=== PATIENT | female | born 1995 | race Caucasian/White ===

== ENCOUNTER 2023-03-20 11:34 | Outpatient (RCR) | payer OTHER, SELFPAY ==
[2023-03-20 12:52] LABS: Hematocrit 34.2 % (37.0-47.0); Hemoglobin 11.2 g/dL (12.0-15.0)
[2023-03-20 13:06] LABS: Glucose 1 Hour PP 50gm Dose 163 mg/dL
[2023-03-20 13:47] LABS: HIV 1/2 Ab P24 Ag Result Negative (Negative)
[2023-03-20] MEDS: RHO(D) IMMUNE GLOBULIN 300 MCG/2 ML SYRINGE IM (17:55)
== END 2023-06-18 23:59 | disposition home or self-care (01) ==
LOC: ANHLAB 11:34
PROVIDERS: Visit Provider Advanced Practice Midwife
DX: Z11.4 Encounter for screening for human immunodeficiency virus [HIV] (principal); Z29.13 Encounter for prophylactic Rho(D) immune globulin; O36.0130 Maternal care for anti-D [Rh] antibodies, third trimester, not applicable or unspecified; Z3A.00 Weeks of gestation of pregnancy not specified
CPT/HCPCS: 36415; 82947; 85014; 85018; 85461; 86703; 86850; 86900; 86901; 90384; 96372; G0432; J2790

== ENCOUNTER 2023-05-29 21:15 | Inpatient (IN) | payer OTHER, SELFPAY ==
[2023-05-29] VITALS (24 sets, daily range): BP systolic 104–138; BP diastolic 59–94; PULSE 69–100; O2SAT 97–100; BMI 38.6
[2023-05-29] MEDS: LACTATED RINGERS 1,000 ML 125 ML IV CONT ×2 (22:47→23:57)
[2023-05-29 22:57] LABS: Basophils Percent Auto 0.3 % (0.2-1.2); Eosinophils Percent Auto 0.1 % (0-4.4); Hematocrit 31.6 % (37.0-47.0); Hemoglobin 10.4 g/dL (12.0-15.0); Immature Granulocyte Absolute 0.07 K/mm3 (0.00-0.031); Immature Granulocyte Percent A 0.7 % (0-0.5); Lymphocytes Absolute Auto 2.24 K/mm3 (0.9-3.2); Lymphocytes Percent Auto 20.9 % (18.3-44.2); Mean Corpuscular HGB Conc 32.9 g/dl (32-36); Mean Corpuscular Hemoglobin 31.7 pg (26-34); Mean Corpuscular Volume 96.3 fl (80-100); Mean Platelet Volume 10.5 fl (7.4-10.4); Monocytes Absolute Auto 0.7 K/mm3 (0.1-0.6); Monocytes Percent Auto 6.2 % (2.6-8.5); Neutrophils Absolute Auto 7.7 K/mm3 (1.3-6.7); Neutrophils Percent Auto 71.8 % (45.5-73.1); Platelet Count Result 185 k/mm3 (150-375); Red Blood Count 3.28 M/mm3 (4.2-5.4); Red Cell Distribution Width 14.5 % (11.5-14.5); White Blood Count 10.7 K/mm3 (4.5-10.0)
--- NOTE | 2023-05-29 23:22 | ADMGEN ---
This patient, Maura Dillard, was admitted to Labor/Delivery/Recovery 106-00. Patient/family oriented to hospital policies and general routines including ID bracelet, bed and alarms, visiting hours, pain management, procedures, bathroom and other care routines, personal items, smoking policy, room service/diet, and visiting hours. Information on how to activate the Rapid Response Team has been discussed. Patient/Family are encouraged to report perceived risks to care and to ask questions if they do not understand what they are told or what they should do.
--- NOTE | 2023-05-29 23:37 | WPDANESEPP ---
Anes - Eval Pre Procedure Procedure: labor epidural Date/Time: 05/29/23 23:37 Pre Op Diagnosis: Contractions Patient Data Age: 27 Gender: F Height: 1.6 m Weight: 99 kg Last Vital Signs Pulse 76 05/29/23 23:31 BP 119/71 05/29/23 23:31 Pulse Ox 100 05/29/23 23:35 O2 Del Method Room Air 05/29/23 23:20 Allergies Allergy/AdvReac Type Severity Reaction Status Date / Time benzocaine Allergy Itching Verified 05/29/23 23:18 latex Allergy Itching Verified 05/29/23 23:18 Home Medications Medication Instructions Recorded Confirmed Type prenat.vits,nafisa,zxs-yysp-mgeei 1 tablet PO DAILY 05/16/23 05/29/23 History sertraline 50 mg tablet 50 mg PO DAILY 05/16/23 05/29/23 History pqmdfedtat-rhngsshzzklrl-qyqxinty 1 tablet PO PRN PRN Headache 05/29/23 05/29/23 History 50 mg-325 mg-40 mg tablet Laboratory Tests 05/29/23 22:52 WBC 10.7 H K/mm3 (4.5-10.0) RBC 3.28 L M/mm3 (4.2-5.4) Hgb 10.4 L g/dL (12.0-15.0) Hct 31.6 L % (37.0-47.0) MCV 96.3 fl (80-100) MCH 31.7 pg (26-34) MCHC 32.9 g/dl (32-36) RDW 14.5 % (11.5-14.5) Plt Count 185 k/mm3 (150-375) MPV 10.5 H fl (7.4-10.4) Immature Gran % (Auto) 0.7 H % (0-0.5) Neut % (Auto) 71.8 % (45.5-73.1) Lymph % (Auto) 20.9 % (18.3-44.2) [place] % (Auto) 6.2 % (2.6-8.5) Eos % (Auto) 0.1 % (0-4.4) Baso % (Auto) 0.3 % (0.2-1.2) Lymph # (Auto) 2.24 K/mm3 (0.9-3.2) [place] # (Auto) 0.7 H K/mm3 (0.1-0.6) Eos # (Auto) 0.0 K/mm3 (0-0.3) Baso # (Auto) 0.0 K/mm3 (0.0-0.1) Abs Immat Gran (auto) 0.07 H K/mm3 (0.00-0.031) Absolute Neuts (auto) 7.7 H K/mm3 (1.3-6.7) Absolute Nucleated RBC 0.000 K/mm3 (0.0-0.012) Nucleated RBC % 0.0 % (0.0-0.2) RPR Pending Patient hx anesthesia problems: none Family hx anesthesia problems: none Results Review: All pre-operative results and documents have been reviewed as part of the pre-operative evaluation. [facility] Past Medical History Medical History (Updated 05/29/23 @ 23:38 by Leslie Bennett CRNA) Anxiety and depression Asthma Migraine Scoliosis Family History Family History Sibling Autism Epilepsy Mother Epilepsy Sibling Epilepsy Social History Social History Substance use: never Do You Feel Safe in your Home?: Yes Lack of Transportation: No Lack of Food: Never True Current Housing: I Have Housing Concerned About Future Housing: No Difficulty Paying Gas/Electric Bills: No Difficulty Paying for Meds: No Currently Unemployed: No Education: High School Diploma/GED Difficulty w/ Childcare or Family Care: No Spiritual care concerns: No Exam Day of Procedure 05/29/23 23:37 Patient weight: obese Heart: regular rate and rhythm Lungs: normal air movement Airway: Mallampati scale Neurological: alert and oriented
[2023-05-30] VITALS (105 sets, daily range): BP systolic 78–131; BP diastolic 44–84; PULSE 39–123; RESP 16–18; TEMP 36.2–36.7; O2SAT 97–100
--- NOTE | 2023-05-30 00:13 | WPDOBADMIT ---
Obstetrics - Admit Note Admission Note: record reviewed. No pertinent additions to the history and/or any subsequent changes in the physical findings that are not consistent with the expected course of the were found. Additions to the history and/or subsequent changes in the physical findings follow. pt admitted in labor, SVE /-2 AROM moderate amount of clear, odorless fluid, anticipate vaginal delivery
[2023-05-30] MEDS: OXYTOCIN 30 UNITS/NS 500 ML 30 UNITS/500 ML BAG IV CONT (00:15)
--- NOTE | 2023-05-30 03:19 | P.PCNOB_ITS ---
OB - Vaginal Delivery Note Procedure Delivery date: 05/30/23 Intrapartal Events: Decelerations Delivery augmentation: Rupture of Membranes and Pitocin Delivery monitor: External FHT and External Uterine Route of delivery: Episiotomy description: None Laceration Description: None Specimen: No Quantitative Blood Loss (ml): 50 Anesthesia type: Epidural Disposition: Floor Complications: No immediate complications [place] Baby Date of : 05/30/23 Time of : 03:10 Weeks of gestation at delivery: 38 Infant gender: Male presentation: vertex position: Left Occiput Anterior Placenta delivery description: Spontaneous Cord Vessel Description: 3 Vessels, Nuchal Cord (x1) and Clamped/Cut Narrative: baby to warmer, mother and baby in stable condition
[2023-05-30] MEDS: OXYTOCIN 30 UNITS/NS 500 ML 30 UNITS/500 ML BAG 125 UNITS IV CONT (03:44)
[2023-05-30] MEDS: BENZOCAINE 20% AER SPR (*SP) 56 GM CAN 1 SPRAY TOPICAL (05:42)
--- NOTE | 2023-05-30 06:40 | OBPPTRN ---
Patient transferred to post room # 284 via wheelchair. Support person present. Oriented to unit, room, information board, rooming in, admission packet and security measures. Patient verbalizes understanding.
--- NOTE | 2023-05-30 09:34 | PC.NURSE ---
[id number] Introductions were made, then consulted with patient to assess needs related to . Discussed with mother her?plans to feed?her infant, the?experience so far, and mother shared how the last was fed a bottle and mother was unhappy about that. Mother was given a nipple shield prior to meeting RN FERNIE. Reviewed good handwashing, cleaning the nipple shield and the appropriate way to apply and use as a tool. Discussed with mom the nipple shield precautions, possible complications associated with the risks and benefits. Reviewed practicing with a nipple shield, then without and how to protect the milk supply and production. Mom and baby guide referred to as a resource for outpatient services. Offered to initiate a pumping schedule to protect the milk supply with pumping at minimum of 8 times in a 24 hour period 1-2 times at night. Patient is going to think about it and declines initiating pumping at this time. Resources provided for inpatient and outpatient services with the feeding sheet, mom/baby guide and name written on the communication board. Mother voiced understanding of information and will call if there is a request for assistance. Primary RN brought infant back to mother during discussion.
[2023-05-30] MEDS: MULTIVIT/MIN/PREN/FOL AC/IRON TABLET 1 TAB PO (09:45)
[2023-05-30 12:00] LABS: Rapid Plasma Reagin Non-Reactive (NonReactive)
[2023-05-30] MEDS: ACETAMINOPHEN 325 MG TABLET 650 MG PO (12:47)
[2023-05-30] MEDS: IBUPROFEN 600 MG TABLET PO (19:07)
[2023-05-30] MEDS: HYDROcodone/acetaminophen (*CRX) 5-325 MG TABLET 1 TAB PO (19:07)
[2023-05-31] MEDS: HYDROcodone/acetaminophen (*CRX) 5-325 MG TABLET 1 TAB PO (04:24)
[2023-05-31] MEDS: IBUPROFEN 600 MG TABLET PO ×2 (04:24→10:12)
[2023-05-31 04:44] LABS: Hematocrit 32.7 % (37.0-47.0); Hemoglobin 10.1 g/dL (12.0-15.0)
--- NOTE | 2023-05-31 04:45 | PC.NURSE ---
CBC drawn and sent to lab.
--- NOTE | 2023-05-31 07:30 | PC.NURSE ---
Pt introductions made and plan of care discussed per post , pain management, breast feeding, daily care activities and pending discharge to home. PT and spouse both recipients of such instructions and no barriers to learning identified at this time. PT received such instructions per one to one discussion, mom baby care guide and demonstrations this shift. PT verbalized understanding of such care.
--- NOTE | 2023-05-31 07:38 | WPDANLDPN2 ---
Anes-Prog Note L&D Date/Time: 05/31/23 07:38 Comfortable throughout: labor and delivery Neuraxial method: epidural Epidural/Spinal procedure site: tender Neuro status: Neuro function grossly intact. Cardiovascular status: normal Respiratory status: normal Airway patency: baseline Mental status: baseline Post-Op hydration status: normal Vital Signs: Last Vital Signs Temp 36.6 C 05/30/23 21:00 Pulse 99 05/30/23 21:00 Resp 16 05/30/23 21:00 BP 112/77 05/30/23 21:00 Pulse Ox 99 05/30/23 21:00 O2 Del Method Room Air 05/29/23 23:20 Pain score (VAS): 2/10 I/O: Intake & Output 05/30/23 05/30/23 05/31/23 15:59 23:59 07:59 Intake Total 250 Balance 250 Post-procedural complaints: none Patient feedback: Patient satisfied with anesthetic care.
--- NOTE | 2023-05-31 07:41 | PM.OBPNVD ---
OB - PN: Subj Subjective Date/time seen: 05/31/23 07:41 Interval history: pp day 1 doing well plan d/c home OB - PN: Obj Data Labs 05/31/23 04:38 Labs: Laboratory Results - last 24 hr 05/29/23 05/31/23 22:52 04:38 Hgb 10.1 L Hct 32.7 L RPR Non-reactive OB - PN A/P Assessment and Plan (1) Vaginal delivery: Code(s): O80 - Encounter for full-term uncomplicated delivery Status: Acute Plan day: 1 Plan: routine care and discharge home Time Spent With Patient Time: Total time spent is greater than 50% in coordination of care (as documented) at patient's floor/unit and/or counseling patient: Review of Systems Review of Systems: All systems reviewed & are unremarkable except as noted in HPI and below Exam Const: General: cooperative Chest: Chest palpation & inspection: normal inspection of the chest Resp: Effort & Inspection: normal respiratory effort Cardio: Rate: regular rate GI: Other: soft Skin: General skin exam: normal color Neuro: General: patient oriented x3 Extrem: Right lower extremity: normal to inspection Left lower extremity: normal to inspection Psych: Appearance: grossly normal
--- NOTE | 2023-05-31 07:43 | PM.OBDSVD ---
DS: Admitting Diagnosis Discharge Date 05/31/23 Admitting Diagnosis Labor DS: Discharge Diagnosis Discharge Diagnosis (1) Vaginal delivery: Code(s): O80 - Encounter for full-term uncomplicated delivery Status: Acute OB - DS: Summary OB Procedures : None OB Procedures Intrapartum: Spontaneous Vag Delivery OB Procedures: : None Peripartum Data Laceration Description: None Episiotomy description: None Time Spent with Patient Time attestation: Total time spent providing and/or coordinating discharge services: DS: Data Data Completed and Pending Labs on day of discharge: Labs from last 24 hours 05/31/23 05/29/23 04:38 22:52 Hgb 10.1 L Hct 32.7 L RPR Non-reactive Discharge Plan Discharge Attending physician on discharge: Tim Lincoln Discharging Clinician: Jyothi Gar Patient Disposition: Home, Self-Care Activity: pelvic rest Diet: regular Discharge Instructions: Education: Mom and Baby Guide Given to: Mother Follow-Up: Call your delivering provider's office for an appointment to be seen in: 6 Weeks Mom and baby should come to the [facility] for the follow-up appointment. Appointment Date/Time: at What to expect at your follow-up visit: Blood Pressure Check Call [phone] if you are unable to keep your appointment time. BREAST CARE: * Wear a snug supportive bra. * For engorgement discomfort: Breast Feeding: * Apply warm moist washcloths * Express milk as needed to relieve engorgement * Wear loose clothing Bottle Feeding: * May apply ice packs * For sore nipples: * Identify correct latch-on * Apply warm moist washcloths before and after nursing * Air dry nipples after nursing * May apply Lansinoh cream to nipples PERINEAL CARE: * Until bleeding stops, use your star bottle after urinating * Change your pad frequently throughout the day * You may take sitz baths several times a day (fill your bathtub with warm water and soak for 20 minutes.) Do NOT bathe in the water * No tub baths until seen by your physician - You may shower ACTIVITY: * Rest as much as possible. * Do not exercise or lift anything heavier than your baby (such as laundry or other children.) * Avoid stairs or driving as much as possible. * Do not put anything into the vagina. No douching, tampons, or sexual activity until seen by physician. NOTIFY PHYSICIAN IF YOU HAVE ANY QUESTIONS OR IF ANY OF THE FOLLOWING SYMPTOMS OCCUR: * If your perineum becomes red, swollen, or more painful than what you have experienced in the hospital. * If your vaginal bleeding becomes foul smelling. * If your vaginal bleeding becomes more heavy than a period or if your bleeding changes from pink to bright red. However, you may pass an occasional walnut-sized clot once or twice for the first week . * If you experience a sharp, shooting pain in you calves. * If you discover a hard, reddened area on your breast or if you experience flu-like symptoms. * If you have a fever of 100.4 or greater DIET: * Eat regular, well-balanced meals. * Drink plenty of fluids daily. If , drink to thirst. Patient Instructions: Antibiotic Form Stand Alone Forms: General Discharge Information Follow-up/Referrals: Jyothi Gar CNM [Certified Nurse Cardiac Exercise Specialist] - 4 Weeks Discharge Medications: New ibuprofen 600 mg Tablet 600 mg PO Q6H PRN (Reason: Cramping) Qty: 30 0RF Continued #2 Tablet 1 tablet PO DAILY sertraline 50 mg Tablet 50 mg PO DAILY dqatsfiwcw-mifunucivklss-ityq 50-325-40 mg tablet 1 tablet PO PRN PRN (Reason: Headache) Date of admission: 05/29/23 21:15 Primary Care Provider: PHYSICIAN,SOLIDS CONTROL TECHNICIAN Admitting Provider: Tim Lincoln Attending physician on admission: Jyothi Gar Condition: Stab
[2023-05-31 08:10] VITALS: BP 113/70; PULSE 74; RESP 16; TEMP 36.4; O2SAT 98
[2023-05-31 10:00] VITALS: PULSE 74; RESP 16; O2SAT 98
[2023-05-31] MEDS: ACETAMINOPHEN 325 MG TABLET 650 MG PO (10:10)
[2023-05-31] MEDS: DOCUSATE SODIUM 100 MG CAPSULE PO (10:12)
[2023-05-31] MEDS: MULTIVIT/MIN/PREN/FOL AC/IRON TABLET 1 TAB PO (10:13)
[2023-05-31] MEDS: LANOLIN (LANSINOH) 7.5 GM CREAM 1 APPLIC TOPICAL (10:13)
--- NOTE | 2023-05-31 10:15 | PC.NURSE ---
PT received discharge instructions per protocol and verbalized understanding of such care. Patient was given the opportunity to view the discharge video Mother & Baby Care, The First Two Weeks and to ask questions. Patient declined viewing the video and has been given the mother/baby guide for home reference.
--- NOTE | 2023-05-31 10:50 | PC.NURSE ---
PT discharged to home ambulatory accompanied by by significant other and infant and walked to waiting car. Follow up appts confirmed
[2023-06-01 09:14] VITALS: BP 120/77; PULSE 84; RESP 18; TEMP 37; O2SAT 100
== END 2023-05-31 10:50 | disposition home or self-care (01) | DRG 560 ==
LOC: ANHOB2 05-31 09:34 → ANHLDR 06-03 10:51 → ANHOB2 06-03 10:51
PROVIDERS: Advanced Practice Midwife; Admitting Provider Obstetrics & Gynecology; Visit Provider Obstetrics & Gynecology
DX: O76 Abnormality in fetal heart rate and rhythm complicating labor and delivery (principal); O69.81X0 Labor and delivery complicated by cord around neck, without compression, not applicable or unspecified; Z3A.38 38 weeks gestation of pregnancy; Z37.0 Single live birth
CPT/HCPCS: 36415; 85014; 85018; 85025; 86592; 86850; 86900; 86901; A9270; J2590; J2795; J7120

== ENCOUNTER 2024-09-02 10:59 | Outpatient (CLI) | payer OTHER, SELFPAY ==
--- OUTSIDE RECORDS SUMMARY | 2024-09-02 11:08 | XMS_ITS | Clinical Summary ---
Author Organization [facility] Address [address] [place] [id number] Care Team Providers Care Butter Production Supervisor Name Role Phone None, Provider MD Primary Care Provider Unavaila ble None, Provider MD Unavailable Unavailable Allergies No known active allergies Medications No known medications Family History Medical History Relation Comments Seizures Brother No Known Problems Father Asthma Mother Depression Mother Kidney Disease Mother Migraines Mother Seizures Mother Mental Health Sister Seizures Sister Relation Status Comments Brother Alive Father Alive Mother Alive Sister Alive Social History Tobacco Use Types Packs/Day Years Used Date Smoking Tobacco: Every Day Cigarettes Smokeless Tobacco: Never Tobacco Cessation:Ready to Q uit: Not Asked; Counseling Given: Not Answered Alcohol Use Standard Drinks/Week Comments Yes 0 (1 standard drink = 0.6 oz pur e alcohol) occasional Comments No Sex and Gender Information Value Date Recorded Sex Assigned at Not on file Legal Sex Female 8:45 PM CDT Gender Identity Not on file Sexual Orientation Not on file Last Filed Vital Signs Vital Sign Reading Time Taken Comments Blood Pressure 130/79 09/04/2022 7:16 PM CDT Pulse 72 09/04/2022 7:16 PM CDT Temperature 36.2 C (97.2 F) 09/04/2022 7:16 PM CDT Respiratory Rate 18 09/04/2022 7:16 PM CDT Oxygen Saturation 98% 09/04/2022 7:16 PM CDT Inhaled Oxygen Concentration - - Weight 86.2 kg (190 lb) 09/04/2022 7:16 PM CDT Height 161.3 cm (5' 3.5) 09/04/2022 7:16 PM CDT Body Mass Index 33.13 09/04/2022 7:16 PM CDT Plan of Treatment Health Maintenance Due Date Last Done Comments Annual Physical 10/31/1999 Hepatitis C 2014 Pneumococcal Vaccine: Pediatrics (0 to 5 Years) and At-Risk Patients (6 to 49 Years) (1 of 2 - PCV) 10/31/2015 COVID-19 Vaccine (1 - 2023- season) 2023 Cervical Cancer Screening Pap Smear (Age 21 to 29) Every 3 Years 01/12/2025 01/12/2022, 05/16/2021, 05/16/2021, Additional history exists Cervical Cancer Screening 01/12/2025 DTaP, Tdap and Td Vaccines (7 - Td or Tdap) 07/20/2030 07/20/2020, 08/18/2008, 10/23/2002, Additional history exists Hepatitis B Vaccines Completed 05/03/1997, 1996, 1996 HPV Vaccines Completed 12/08/2009, 09/26, 08/18/2008 Meningococcal Vaccine Completed 11/24/2014, 009 Meningococcal B Vaccine Aged Out No l onger eligible based on patient's age to complete this topic RSV Immunizations Under 20 Months Aged Out No longer eligible based on patient's age to complete this topic Insurance [address] [place] [address] [place] Care Teams Butter Production Supervisor Relationship Specialty Start Date End Date None, Provider, PCP - General 07/03/21 None, ProviderMD 07/03/21
--- OUTSIDE RECORDS SUMMARY | 2024-09-02 11:08 | XMS_ITS | Data Portability ---
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 of undetermined significance on cervical Papanicolaou smear 630245621 R87.610 Human mitra llomavirus deoxyribonucleic acid detected, high risk on cervical specimen [id number] R87.810 [id number] Óscar Lincoln MD [place] [address],[place] [address] 10/15/2022 14:47:46 10/15/2022 16:02:29 [id number] Óscar Lincoln MD [place] [address],[place] [address] 10/15/2022 14:48:04 10/15/2022 16:34:00 Amenorrhea 25079014 N91.2 This patient is a 26-year-ol d female with amenorrhea . She presents for positive test. Ultrasound was performed. She has a 5 week 6 day gestation with a heartbeat. care and to some degree. Talked about genetic screening. Talked about precaution s in . We spent over 20 minutes face-to-fa ce. More 50% was counseling . She return in 6 weeks for 1st visit. Venereal d isease screening [id number] Z11.3 [id number] Óscar Lincoln MD [place] [address],[place] [address] 11/09/2022 16:48:41 11/13/2022 04:06:57 [id number] Óscar Lincoln MD [place] [address],[place] [address] 11/29/2022 14:18:59 11/29/2022 15:01:12 screening 499207380 Z36.82 Z3A.12 [id number] Óscar Lincoln MD [place] [address],[place] [address] 11/29/2022 14:19:19 11/29/2022 16:02:27 Routine care 860970305 Z34.92 [id number] [facility] [address],[place] [address] 12/26/2022 15:01:51 12/26/2022 15:21:34 Routine care 590323613 Z34.93 Mixed anxi ety and depressive disorder 848471813 F41.8 se risks and benefits reviewed if any suicidal thoughts to ED Migraine 02470399 G43.90 9 as needed Nausea and vomiting 1693 1999 R11.2 [id number] Óscar Lincoln MD [place] [address],[place] [address] 01/25/2023 11:18:05 01/25/2023 12:30:21 screening for malformation 382949507 Z36.3 Z3A.21 [id number] [facility] [address],[place] [address] 01/25/2023 11:18:49 01/25/2023 12:55:35 Routine care 952576943 Z34.93 [id number] Óscar Lincoln MD [place] [address],[place] [address] 02/20/2023 15:58:12 02/20/2023 16:58:01 condition affecting obstetrical care of mother [id number] O35.3XX0 O43.112 Z3A.24 [id number] [facility] [address],[place] [address] 02/20/2023 15:58:32 02/20/2023 17:14:06 Routine care 807882374 Z34.93 [id number] [facility] [address],[place] [address] 03/20/2023 11:08:31 03/20/2023 12:15:16 Routine care 581712367 Z34.93 [id number] Óscar Lincoln MD [place] [address],[place] [address] 1 03/20/2023 11:04:39 03/20/2023 11:37:32 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 Z86.16 Z3A.28 [id number] [facility] [address],[place] [address] 04/03/2023 17:01:03 04/03/2023 17:48:15 Routine care 831832268 Z34.93 [id number] Óscar Lincoln MD [place] [address],[place] [address] 04/17/2023 16:56:39 04/17/2023 17:48:08 Placenta circumvallata 0065060 O43.113 O35.3XX0 Z3A.32 [id number] [facility] [address],[place] [address] 04/17/2023 16:56:55 04/17/2023 18:20:11 Routine care 054123806 Z34.93 [id number] [facility] [address],[place] [address] 05/01/2023 17:01:17 05/01/2023 17:54:35 Routine care 970734021 Z34.93 [id number] Óscar Lincoln MD [place] [address],[place] [address] 05/15/2023 12:22:46 05/15/2023 14:05:23 Placenta circumvallata 5761068 O43.113 Z86.16 Z3A.36 [id number] Jyothi Gar [facility] [address],[place] [address] 05/15/2023 12:23:05 05/15/2023 14:58:59 Routine care 629306769 Z34.93 [id number] [facility] [address],[place] [address] 05/22/2023 10:43:36 05/22/2023 12:35:34 Routine care 914902679 Z34.93 [id number] [facility] [address],[place] [address] 05/29/2023 11:11:57 05/29/2023 11:43:57 Routine care 431823150 Z34.93 [id number] Jyothi Gar [facility] [address],[place] [address] 06/26/2023 14:54:13 06/26/2023 15:27:16 care 659239051 Z39.2 depression 58 865190 F53.0 increase sertraline to 100mgif any suicidal thoughts to EDf/u here 6 weeks med check [id number] [facility] [address],[place] [address] 08/07/2023 12:36:38 08/07/2023 16:57:07 Mixed anxiety and depressive disorder 054508584 F41.8 se risks and benefits reviewed if any suicidal thoughts to EDcontinue zoloft 100mg f/u 6 month wwe [id number] [facility] [address],[place] [address] 09/13/2023 13:58:50 09/13/2023 14:30:11 Lesion of vulva 268426935 N90.89 resolved, continue to monitor for symptoms, if worsens or reappears will plan to drain in office Mixed anxi ety and depressive disorder 569889944 F41.8 continue zoloft 100mg f/u 6 month wwe [id number] [facility] [address],[place] [address] 01/31/2024 10:52:11 01/31/2024 13:24:46 Gynecologic examination 63959237 Z01.419 Z11.51 R87.620 R87.810 [id number] Óscar Lincoln MD [place] [address],[place] [address] 03/11/2024 11:21:21 03/11/2024 12:06:54 [id number] Jyothi Gar CNM [place] [address],[place] [address] 03/11/2024 11:21:44 03/11/2024 12:55:42 Venereal disease screening 657478333 Z11.3 Nausea and vomiting 1693 1999 R11.2 [id number] Óscar Lincoln MD [place] [address],[place] [address] 04/01/2024 10:30:08 04/01/2024 11:39:23 screening 808715487 Z36.82 Z3A.12 [id number] [facility] [address],[place] [address] 04/01/2024 10:30:53 04/01/2024 12:09:11 Routine care 306619583 Z34.93 Gestation period, 12 weeks 78872486 Z3A.12 continue vitiaminst art bASA [id number] [facility] [address] [place] [address] 04/29/2024 09:28:30 04/29/2024 09:53:40 Gestation period, 16 weeks 24602035 Z3A.16 Migraine 02839399 G43.90 9 excedrin [place] ok [id number] Óscar Lincoln MD [place] [address],[place] [address] 05/27/2024 09:17:06 05/27/2024 10:39:43 screening for malformation 306316178 Z36.3 Z3A.21 Gestation period, 20 weeks 20826999 Z3A.20 [id number] [facility] [address],[place] [address] 05/27/2024 09:17:22 05/27/2024 11:14:45 Gestation period, 20 weeks 71541204 Z3A.20 [id number] Óscar Lincoln MD [place] [address],[place] [address] 06/24/2024 09:16:15 06/24/2024 10:20:47 Follow-up encounter 073937361 Z36.2 Z3A.24 [id number] [facility] [address],[place] [address] 06/24/2024 09:16:37 06/24/2024 10:42:47 Gestation period, 24 weeks 571397977 Z3A.24 Bleeding from nose 48661 6005 R04.0 check cbc [id number] Óscar Lincoln MD [place] [address],[place] [address] 07/22/2024 09:15:26 07/22/2024 10:09:02 Maternal obesity complicating , childbirth and the puerperium, antepartum 1668378041 07 O99.210 Z3A.28 [id number] Jyothi Gar CNM [place] [address],[place] [address] 07/22/2024 09:15:41 07/22/2024 14:03:39 Gestation period, 28 weeks 35021733 Z3A.28 cont pnv [id number] Jyothi Gar CNM [place] [address],[place] [address] 08/05/2024 17:50:53 08/16/2024 09:12:34 [id number] Jyothi Gar [facility] [address],[place] [address] 08/07/2024 11:20:28 08/07/2024 12:34:37 Gestation period, 30 weeks 41824561 Z3A.30 cont pnv [id number] Jyothi Gar [facility] [address],[place] [address] 08/19/2024 12:02:10 08/19/2024 12:25:52 Gestation period, 32 weeks 4940711 Z3A.32 [id number] Óscar Lincoln MD [place] [address],[place] [address] 09/02/2024 09:56:26 09/02/2024 10:37:01 Maternal obesity complicating , childbirth and the puerperium, antepartum 7208275989 07 O99.210 Z3A.34 [id number] Jyothi Gar [facility] [address],[place] [address] 09/02/2024 09:56:39 09/02/2024 11:34:04 Gestation period, 34 weeks 02301378 Z3A.34 Health Concerns Section Related Observation LastModified by Organization Detai ls LastModified Time None Recorded Concern Status LastModified by Organization Details LastModified Time None Recorded Advance Directives Directive N: Payers Insurance Date Sequence Insurance Name Policy Number Policy Telles Covered Member ID Telles Member ID Guarantor Name 03/11/2024 2 [facility] ON OR AFTER 08/25/20 (MEDICAID REPLACEMENT - HMO) Haile Dillard [id number] Haile Dillard 04/01/2024 2 [facility] PRIOR TO 08/25/2020 (MEDICAID REPLACEMENT - HMO) Haile Dillard [id number] Haile Dillard 01/30/2024 1 [facility] PRIOR TO 08/25/2020 (MEDICAID REPLACEMENT - HMO) Haile lewis [id number] Haile Dillard 01/30/2024 1 [place] [facility] Maura Dillard [id number] Haile Dillard 08/31/2024 1 [facility] ON OR AFTER 08/25/20 (MEDICAID REPLACEMENT - HMO) Maura Guos [id number] Haile Dillard 01/30/2024 2 [facility] ON OR AFTER 08/25/20 (MEDICAID REPLACEMENT - HMO) Maura Dillard [id number] Haile Dillard 01/30/2024 2 [facility] ON OR AFTER 08/25/20 (MEDICAID REPLACEMENT - HMO) Maura Dillard [id number] Haile Guos 01/30/2024 2 [facility] ON OR AFTER 20 (MEDICAID REPLACEMENT - HMO) Maura Dillard [id number] Haile Dillard OBGyn Episode Ob Episode Information Episode Created Date Number of Fetuses Patient Bloodtype Patient rh Status Prepregnancy Weight lbs Domestic Partner Domestic Partner Phone Father Name Heel Seat Fitter Status 04/11/19 21 1 A Negative 173 CLOSED Fetus Data First Name Last Name Admitted to NICU Weight (g) Sex Living Outcome Pediatric Complications Fetus ID Race Codes Race Delivery Type 3005.04 7 M true Full Term 7895 Vaginal Delivery Problems Problem Notes 3/4 records reviewed Problem Name Start Date End Date Resolution Snomed Code Not e Marginal insertion of umbilical cord 05/02/2020 [id number] growth u/s Asthma [id number] Doesn't us e inhaler Status migrainosus 556081743 R are migraine - no meds Cigarette smoker 95764628 Timoteo Calculation Initial Timoteo Date Initial Exam Date Initial Exam Provider Initial Ultrasound Date Last Menstrual Period Date Ultra Sound Weeks Gestation 09/19/2020 04/11/2020 02/02/2020 12/14/2019 7 Eighteen To Twenty Week Timoteo Update Ultra Sound Date Fundal Height At Umbil Quickening Date Ultra Sound Latest Weeks Gestation Final Timoteo Confirmed By Final Timoteo Confirmed Date Final Timoteo Date Ultra Sound Latest Days Gestation 0 [email or web address] 04/11/2020 09/20/19 21 0 Pre-mik Flowsheet Flowsheet Date 04/11/2020 Reynolds Score Blood Edema Fundus Height Fundus Units Glucose Ketones Leukocytes Nitrite Labor Signs Protein Cervic Dilation Cervic Effacement Cervic Station Type Weight in lbs Pre/Post Dialysis Refused BP Diastolic BP Location Tested BP Systolic BP Type Fetus Heart Rate Present Fetus Movement Comments Flowsheet Date 04/11/2020 Reynolds Score Blood Edema Fundus Height Fundus Units Glucose Ketones Leukocytes Nitrite Labor Signs Protein Cervic Dilation Cervic Effacement Cervic Station neg none 17 trace Type Weight in lbs Pre/Post Dialysis Refused Weight 173.765997223570 BP Diastolic BP Location Tested BP Systolic BP Type 69 118 Fetus Heart Rate Present A 145 Fetus Movement A No Comments this patient is a 24-year-ol d 1 at 17 weeks gestation who presents for transfer of her care. Has no complaints. She is trying to quit smoking. She reports asthma and migraine but has not been treated. She has good dating based on a 7 week ultrasound. She return for a anatomic survey and routine appointment. Requested better treatment for headache today. She was prescribed Fioricet Flowsheet Date 05/02/2020 Reynolds Score Blood Edema Fundus Height Fundus Units Glucose Ketones Leukocytes Nitrite Labor Signs Protein Cervic Dilation Cervic Effacement Cervic Station Type Weight in lbs Pre/Post Dialysis Refused BP Diastolic BP Location Tested BP Systolic BP Type Fetus Heart Rate Present Fetus Movement Comments Flowsheet Date 05/02/2020 Reynolds Score Blood Edema Fundus Height Fundus Units Glucose Ketones Leukocytes Nitrite Labor Signs Protein Cervic Dilation Cervic Effacement Cervic Station none neg Type Weight in lbs Pre/Post Dialysis Refused Weight 174.50660953708 BP Diastolic BP Location Tested BP Systolic BP Type 69 102 Fetus Heart Rate Present Fetus Movement A Yes Comments Baseline anatomy today. Will await recommendations. Having a boy Shahbaz. Flowsheet Date 05/30/2020 Reynolds Score Blood Edema Fundus Height Fundus Units Glucose Ketones Leukocytes Nitrite Labor Signs Protein Cervic Dilation Cervic Effacement Cervic Station Type Weight in lbs Pre/Post Dialysis Refused BP Diastolic BP Location Tested BP Systolic BP Type Fetus Heart Rate Present Fetus Movement Comments Flowsheet Date 05/30/2020 Reynolds Score Blood Edema Fundus Height Fundus Units Glucose Ketones Leukocytes Nitrite Labor Signs Protein Cervic Dilation Cervic Effacement Cervic Station none Type Weight in lbs Pre/Post Dialysis Refused Weight 180.711248117841 BP Diastolic BP Location Tested BP Systolic BP Type 68 114 Fetus Heart Rate Present Fetus Movement A Yes Comments Doing well. Growth u/s today . 28 week lab orders given to patient. Flowsheet Date 06/27/2020 Reynolds Score Blood Edema Fundus Height Fundus Units Glucose Ketones Leukocytes Nitrite Labor Signs Protein Cervic Dilation Cervic Effacement Cervic Station Type Weight in lbs Pre/Post Dialysis Refused BP Diastolic BP Location Tested BP Systolic BP Type Fetus Heart Rate Present Fetus Movement Comments Flowsheet Date 06/27/2020 Reynolds Score Blood Edema Fundus Height Fundus Units Glucose Ketones Leukocytes Nitrite Labor Signs Protein Cervic Dilation Cervic Effacement Cervic Station neg none trace Type Weight in lbs Pre/Post Dialysis Refused Weight 185.248990114928 BP Diastolic BP Location Tested BP Systolic BP Type 71 109 Fetus Heart Rate Present A 140 Fetus Movement A Yes Comments Doing well. Still smoking 5 cigs/day, encouraged cessation. Migraines improving, rarely needs fioricet. Got Rhogam over the weekend. Doing 3 hr today. US today for MCI EFW 33%, breech. Flowsheet Date 07/11/2020 Reynolds Score Blood Edema Fundus Height Fundus Units Glucose Ketones Leukocytes Nitrite Labor Signs Protein Cervic Dilation Cervic Effacement Cervic Station 29 trace Type Weight in lbs Pre/Post Dialysis Refused Weight 186.317647354362 BP Diastolic BP Location Tested BP Systolic BP Type 75 112 Fetus Heart Rate Present A 125 Fetus Movement A Yes Comments Visit per Z. Due SNM. EPDS 1 7. History of depression/anxiety in the past. No thoughts of harming herself or others. She is just overwhelmed with helping care for her autistic sibling. Discussed all options. Counselling referral given to patient. She would like to start zoloft. Discussed risks vs benefits. Will return in 2 weeks for follow up. Sooner if any concerns or worsening of symptoms. Flowsheet Date 07/27/2020 Reynolds Score Blood Edema Fundus Height Fundus Units Glucose Ketones Leukocytes Nitrite Labor Signs Protein Cervic Dilation Cervic Effacement Cervic Station Type Weight in lbs Pre/Post Dialysis Refused BP Diastolic BP Location Tested BP Systolic BP Type Fetus Heart Rate Present Fetus Movement Comments Flowsheet Date 07/27/2020 Reynolds Score Blood Edema Fundus Height Fundus Units Glucose Ketones Leukocytes Nitrite Labor Signs Protein Cervic Dilation Cervic Effacement Cervic Station neg none trace Type Weight in lbs Pre/Post Dialysis Refused Weight 184.369338212642 BP Diastolic BP Location Tested BP Systolic BP Type 74 113 Fetus Heart Rate Present Fetus Movement A Yes Comments patient states that having s ome hip pain, us mci efw 24%, call for preadmit, using maternity belt, precautions reviewed, discussed pediatricians, f/u 2 weeks ob Flowsheet Date 08/09/2020 Reynolds Score Blood Edema Fundus Height Fundus Units Glucose Ketones Leukocytes Nitrite Labor Signs Protein Cervic Dilation Cervic Effacement Cervic Station trace 34 trace Type Weight in lbs Pre/Post Dialysis Refused Weight 188.233924159244 BP Diastolic BP Location Tested BP Systolic BP Type 74 107 Fetus Heart Rate Present A 138 Fetus Movement A Yes Comments Doing well. Rare contraction s. Acid reflux. Discussed options. Pt doing great on zoloft and wants to continue. Refill sent out. Flowsheet Date 08/24/2020 Reynolds Score Blood Edema Fundus Height Fundus Units Glucose Ketones Leukocytes Nitrite Labor Signs Protein Cervic Dilation Cervic Effacement Cervic Station Type Weight in lbs Pre/Post Dialysis Refused BP Diastolic BP Location Tested BP Systolic BP Type Fetus Heart Rate Present Fetus Movement Comments Flowsheet Date 08/24/2020 Reynolds Score Blood Edema Fundus Height Fundus Units Glucose Ketones Leukocytes Nitrite Labor Signs Protein Cervic Dilation Cervic Effacement Cervic Station neg none trace 2cm 70% -2 Type Weight in lbs Pre/Post Dialysis Refused Weight 191.093973704407 BP Diastolic BP Location Tested BP Systolic BP Type 79 119 Fetus Heart Rate Present Fetus Movement A Yes Comments patient states that having s ome nausea and contractions. efw 29%, labor precautions reviewed, GBS collected Flowsheet Date 08/31/2020 Reynolds Score Blood Edema Fundus Height Fundus Units Glucose Ketones Leukocytes Nitrite Labor Signs Protein Cervic Dilation Cervic Effacement Cervic Station neg none trace Type Weight in lbs Pre/Post Dialysis Refused Weight 195.746077290960 BP Diastolic BP Location Tested BP Systolic BP Type 79 125 Fetus Heart Rate Present A 134 Present Fetus Movement A Yes Comments patient states that having s ome pressure and contractions. reviewed precautions, sve 2-3/70/-2, would like IOL at 39 weeks Flowsheet Date 09/07/2020 Reynolds Score Blood Edema Fundus Height Fundus Units Glucose Ketones Leukocytes Nitrite Labor Signs Protein Cervic Dilation Cervic Effacement Cervic Station neg none trace Type Weight in lbs Pre/Post Dialysis Refused Weight 197.685511501769 BP Diastolic BP Location Tested BP Systolic BP Type 79 115 Fetus Heart Rate Present Fetus Movement A Yes Comments patient states that having p ressure and nausea. precautions reviewed declined cervical check plan IOL on 09/14 with sp Menstrual History Last Menstrual Date Menses Monthly On Bcp Conception Prior Menses Frequency Hcg Plus Date Menarche Onset Age 1012/14/2019 Genetic Screening And Infection History Question Response Note Mental Retardation/Autism false Patient's Age Will Be 35 Years Or Older At Estim ated Date of Delivery false Thalassemia (Welsh, Turkmen, Mediterranean, Or Background): MCV < 80 false Neural Tube Defect (Meningomyelocele, Spina Bifi da, Or Anencephaly) false Congenital Heart Defect false Down Syndrome false Ranulfo-Sachs (eg, Jain, Cajun, Kazakh-Angolan) f alse Marysol Disease false Sickle Cell Disease Or Trait () false Hemophilia Or Other Blood Disorders false Muscular Dystrophy false Cystic Fibrosis false Nez Perce's Chorea false Intellectual Disability/Autism false If Yes, Was Person Tested For Fragile X? false Other Inherited Genetic Or Chromosomal Disorder false Maternal Metabolic Disorder (eg, Type 1 Diabetes , PKU) false Patient Or Baby's Father Had A Child With Defects Not Listed Above false Recurrent Loss, Or A Stillbirth false Medications (including Suppl ements, Vitamins, Herbs, OTC Drugs), Illicit/Recreational Drugs, Alcohol false If Yes, Agent(s) And Strength/Dosage false Any Other Genetic History false Live With Someone With TB Or Exposed To TB false Patient Or Partner Has History Of Genital Herpes false Rash Or Viral Illness Since Last Menstrual Perio d false History Of STD, Gonorrhea, Chlamydia, HPV, Syphi lis false Other Infection History false History of HIV false History of Hepatitis false Prior GBS-infected child false Hemoglobinopathy Or Carrier false Other Structural Defect false Recent Travel History Outside of Country false Delivery Information Delivery Date Delivery Type Labor Anesthesia Weeks Gestation Incision Type Labor Labor Length Hrs Delivered By Post Complications Tubal Sterilization Discharge Date Comments 1 Induce d Regional-Ep idural 39.2 false Jyothi Gar CNM Discharge Information Feeding Method Contraceptive Method Maternal HG B and HCT Levels Breast Ob Episode Information Episode Created Date Number of Fetuses Patient Bloodtype Patient rh Status Prepregnancy Weight lbs Domestic Partner Domestic Partner Phone Father Name Heel Seat Fitter Status 05/17/19 22 1 CLOSED Fetus Data First Name Last Name Admitted to NICU Weight (g) Sex Living Outcome Pediatric Complications Fetus ID Race Codes Race Delivery Type Ectopic 18220 Timoteo Calculation Initial Timoteo Date Initial Exam Date Initial Exam Provider Initial Ultrasound Date Last Menstrual Period Date Ultra Sound Weeks Gestation 0 Eighteen To Twenty Week Timoteo Update Ultra Sound Date Fundal Height At Umbil Quickening Date Ultra Sound Latest Weeks Gestation Final Timoteo Confirmed By Final Timoteo Confirmed Date Final Timoteo Date Ultra Sound Latest Days Gestation 0 0 Menstrual History Last Menstrual Date Menses Monthly On Bcp Conception Prior Menses Frequency Hcg Plus Date Menarche Onset Age Delivery Information Delivery Date Delivery Type Labor Anesthesia Weeks Gestation Incision Type Labor Labor Length Hrs Delivered By Post Complications Tubal Sterilization Discharge Date Comments 1 Discharge Information Feeding Method Contraceptive Method Maternal HG B and HCT Levels Ob Episode Information Episode Created Date Number of Fetuses Patient Bloodtype Patient rh Status Prepregnancy Weight lbs Domestic Partner Domestic Partner Phone Father Name Heel Seat Fitter Status 04/01/19 25 1 A Negative [address] OPEN Fetus Data First Name Last Name Admitted to NICU Weight (g) Sex Living Outcome Pediatric Complications Fetus ID Race Codes Race Delivery Type [id number] Problems Problem Notes bmi- 3832 wk growth us Problem Name Start Date End Date Resolution Snomed Code Not e Anxiety 34414698 no medicat ion Body mass index 30+ - obesity 618578501 WEEKLY ANTENATA L TESTING @ 37WKS Asthma [id number] History of migraine 982327261 Anemia 06/25/2024 [id number] Timoteo Calculation Initial Timoteo Date Initial Exam Date Initial Exam Provider Initial Ultrasound Date Last Menstrual Period Date Ultra Sound Weeks Gestation 10/13/2024 03/11/2024 Jyothi Gar 03/11/2024 01/07/2024 8 Eighteen To Twenty Week Timoteo Update Ultra Sound Date Fundal Height At Umbil Quickening Date Ultra Sound Latest Weeks Gestation Final Timoteo Confirmed By Final Timoteo Confirmed Date Final Timoteo Date Ultra Sound Latest Days Gestation 0 0 Pre-mik Flowsheet Flowsheet Date 04/01/2024 Reynolds Score Blood Edema Fundus Height Fundus Units Glucose Ketones Leukocytes Nitrite Labor Signs Protein Cervic Dilation Cervic Effacement Cervic Station neg none none trace Type Weight in lbs Pre/Post Dialysis Refused Weight 219.844863894028 BP Diastolic BP Location Tested BP Systolic BP Type 74 107 Fetus Heart Rate Present Fetus Movement A Yes Comments Patient states that is havin g some nausea. reviewed US, history of 2 uncomplicated vaginal deliveries, start bASA, BMI-38, begin routine care Flowsheet Date 04/29/2024 Reynolds Score Blood Edema Fundus Height Fundus Units Glucose Ketones Leukocytes Nitrite Labor Signs Protein Cervic Dilation Cervic Effacement Cervic Station neg none Type Weight in lbs Pre/Post Dialysis Refused Weight 218.162544871060 BP Diastolic BP Location Tested BP Systolic BP Type 78 115 Fetus Heart Rate Present Fetus Movement A Yes Comments Patient is having migraine a nd nausea. ok for excedrin tension, doing well, +FM, has anatomy scan scheduled, Yan, precautions and education, f/u 4 weeks Flowsheet Date 05/27/2024 Reynolds Score Blood Edema Fundus Height Fundus Units Glucose Ketones Leukocytes Nitrite Labor Signs Protein Cervic Dilation Cervic Effacement Cervic Station Type Weight in lbs Pre/Post Dialysis Refused BP Diastolic BP Location Tested BP Systolic BP Type Fetus Heart Rate Present Fetus Movement Comments Flowsheet Date 05/27/2024 Reynolds Score Blood Edema Fundus Height Fundus Units Glucose Ketones Leukocytes Nitrite Labor Signs Protein Cervic Dilation Cervic Effacement Cervic Station neg none Type Weight in lbs Pre/Post Dialysis Refused Weight 220.133951506099 BP Diastolic BP Location Tested BP Systolic BP Type 70 103 Fetus Heart Rate Present Fetus Movement A Yes Comments anatomy incomplete, doing we ll, +FM, precautions and education f/u 4 weeks Flowsheet Date 06/24/2024 Reynolds Score Blood Edema Fundus Height Fundus Units Glucose Ketones Leukocytes Nitrite Labor Signs Protein Cervic Dilation Cervic Effacement Cervic Station Type Weight in lbs Pre/Post Dialysis Refused BP Diastolic BP Location Tested BP Systolic BP Type Fetus Heart Rate Present Fetus Movement Comments Flowsheet Date 06/24/2024 Reynolds Score Blood Edema Fundus Height Fundus Units Glucose Ketones Leukocytes Nitrite Labor Signs Protein Cervic Dilation Cervic Effacement Cervic Station neg trace Type Weight in lbs Pre/Post Dialysis Refused 224.801538688856 BP Diastolic BP Location Tested BP Systolic BP Type 69 103 Fetus Heart Rate Present Fetus Movement A Yes Comments Patient is having really bad nose bleeds and swelling. check cbc, ok for daily saline spray, +FM, efw 16%. partial circumvallate placenta, f/u 4 weeks with growth and GCT, precautions reviewed Flowsheet Date 07/22/2024 Reynolds Score Blood Edema Fundus Height Fundus Units Glucose Ketones Leukocytes Nitrite Labor Signs Protein Cervic Dilation Cervic Effacement Cervic Station Type Weight in lbs Pre/Post Dialysis Refused BP Diastolic BP Location Tested BP Systolic BP Type Fetus Heart Rate Present Fetus Movement Comments Flowsheet Date 07/22/2024 Reynolds Score Blood Edema Fundus Height Fundus Units Glucose Ketones Leukocytes Nitrite Labor Signs Protein Cervic Dilation Cervic Effacement Cervic Station neg trace Type Weight in lbs Pre/Post Dialysis Refused Weight 224.522712576024 BP Diastolic BP Location Tested BP Systolic BP Type 72 106 Fetus Heart Rate Present Fetus Movement A Yes Comments Patient is having some swell ing. efw 30%, doing well, fatigue +FM precautions and education gct today Flowsheet Date 08/05/2024 Reynolds Score Blood Edema Fundus Height Fundus Units Glucose Ketones Leukocytes Nitrite Labor Signs Protein Cervic Dilation Cervic Effacement Cervic Station Type Weight in lbs Pre/Post Dialysis Refused BP Diastolic BP Location Tested BP Systolic BP Type Fetus Heart Rate Present Fetus Movement Comments Flowsheet Date 08/07/2024 Reynolds Score Blood Edema Fundus Height Fundus Units Glucose Ketones Leukocytes Nitrite Labor Signs Protein Cervic Dilation Cervic Effacement Cervic Station neg none 30 cm Type Weight in lbs Pre/Post Dialysis Refused Weight 225.768962111781 BP Diastolic BP Location Tested BP Systolic BP Type 72 111 Fetus Heart Rate Present A 145 Fetus Movement A Yes Comments Patient is having some hip p ain. +FM education and precautions, ok for maternity support belt, f/u 2 weeks reviewed gct, limit excess sugars Flowsheet Date 08/19/2024 Reynolds Score Blood Edema Fundus Height Fundus Units Glucose Ketones Leukocytes Nitrite Labor Signs Protein Cervic Dilation Cervic Effacement Cervic Station Type Weight in lbs Pre/Post Dialysis Refused Weight 227.1180307053 BP Diastolic BP Location Tested BP Systolic BP Type 73 L arm 110 sitting Fetus Heart Rate Present Fetus Movement A Yes Comments +FM, education and precautio ns doing well 34 week growth us f/u 2 weeks Flowsheet Date 09/02/2024 Reynolds Score Blood Edema Fundus Height Fundus Units Glucose Ketones Leukocytes Nitrite Labor Signs Protein Cervic Dilation Cervic Effacement Cervic Station Type Weight in lbs Pre/Post Dialysis Refused BP Diastolic BP Location Tested BP Systolic BP Type Fetus Heart Rate Present Fetus Movement Comments Flowsheet Date 09/02/2024 Reynolds Score Blood Edema Fundus Height Fundus Units Glucose Ketones Leukocytes Nitrite Labor Signs Protein Cervic Dilation Cervic Effacement Cervic Station Type Weight in lbs Pre/Post Dialysis Refused 226.801058716527 BP Diastolic BP Location Tested BP Systolic BP Type 72 L arm 106 sitting Fetus Heart Rate Present Fetus Movement A Yes Comments EFW 67% doing well + FM orde r for rhogam will do today education and precautions will plan 39 iol, signed consent for tubal ligation, plan 6 week pp Menstrual History Last Menstrual Date Menses Monthly On Bcp Conception Prior Menses Frequency Hcg Plus Date Menarche Onset Age 1101/07/2024 Delivery Information Delivery Date Delivery Type Labor Anesthesia Weeks Gestation Incision Type Labor Labor Length Hrs Delivered By Post Complications Tubal Sterilization Discharge Date Comments Discharge Information Feeding Method Contraceptive Method Maternal HG B and HCT Levels Ob Episode Information Episode Created Date Number of Fetuses Patient Bloodtype Patient rh Status Prepregnancy Weight lbs Domestic Partner Domestic Partner Phone Father Name Heel Seat Fitter Status 11/30/19 23 1 A Negative 195 CLOSED Fetus Data First Name Last Name Admitted to NICU Weight (g) Sex Living Outcome Pediatric Complications Fetus ID Race Codes Race Delivery Type 3720.31 [id number] M true Full Term [id number] Vaginal Delivery Problems Problem Notes NOB note mentioned infected with Covid if in pt will need serial growth after [id number] Problem Name Start Date End Date Resolution Snomed Code Not e Placenta circumvallata [id number] growth q 4 RhD negative [id number] Rhogam at 28wks - 03/20/23 1755 received Anxiety in MEDICATION [id number] [id number] sertraline History of migraine MEDICATION [id number] fioricet Timoteo Calculation Initial Timoteo Date Initial Exam Date Initial Exam Provider Initial Ultrasound Date Last Menstrual Period Date Ultra Sound Weeks Gestation 06/07/2023 11/29/2022 11/09/2022 08/31/2022 10 Eighteen To Twenty Week Timoteo Update Ultra Sound Date Fundal Height At Umbil Quickening Date Ultra Sound Latest Weeks Gestation Final Timoteo Confirmed By Final Timoteo Confirmed Date Final Timoteo Date Ultra Sound Latest Days Gestation 0 [email or web address] 11/29/2022 06/07/19 24 0 Pre-mik Flowsheet Flowsheet Date 11/29/2022 Reynolds Score Blood Edema Fundus Height Fundus Units Glucose Ketones Leukocytes Nitrite Labor Signs Protein Cervic Dilation Cervic Effacement Cervic Station 12 Type Weight in lbs Pre/Post Dialysis Refused Weight 193.93974410459 BP Diastolic BP Location Tested BP Systolic BP Type 77 R arm 117 sitting Fetus Heart Rate Present A 145 Fetus Movement Comments this patient is a 27-year-ol d 3 para 1011 at 12 weeks gestation who presents for initial care. She is not vaccinated for COVID, but she did get infected. she was given recommendations vaccinations she has no medical, surgical, obstetric history that is worrisome. She will begin routine care. She had no c Flowsheet Date 12/26/2022 Reynolds Score Blood Edema Fundus Height Fundus Units Glucose Ketones Leukocytes Nitrite Labor Signs Protein Cervic Dilation Cervic Effacement Cervic Station neg none none trace Type Weight in lbs Pre/Post Dialysis Refused Weight 197.104209912878 BP Diastolic BP Location Tested BP Systolic BP Type 77 128 Fetus Heart Rate Present A 158 Present Fetus Movement A Yes Comments patient is having anxiety, d epression, headaches, swelling, nausea and vomiting. hx anxiety/depression was on zoloft and would like to restart, no suicidal thoughts, zofran for nausea. fioricet worked for headaches last and would like a refill. anatomy at next visit. precautions and education Flowsheet Date 01/25/2023 Reynolds Score Blood Edema Fundus Height Fundus Units Glucose Ketones Leukocytes Nitrite Labor Signs Protein Cervic Dilation Cervic Effacement Cervic Station Type Weight in lbs Pre/Post Dialysis Refused BP Diastolic BP Location Tested BP Systolic BP Type Fetus Heart Rate Present Fetus Movement Comments Flowsheet Date 01/25/2023 Reynolds Score Blood Edema Fundus Height Fundus Units Glucose Ketones Leukocytes Nitrite Labor Signs Protein Cervic Dilation Cervic Effacement Cervic Station neg none none trace Type Weight in lbs Pre/Post Dialysis Refused Weight 198.928582651799 BP Diastolic BP Location Tested BP Systolic BP Type 70 106 Fetus Heart Rate Present Fetus Movement A Yes Comments patient is having some nause a. anatomy complete, circumvallate placenta, precautions and education f/u 4 weeks with growth Flowsheet Date 02/20/2023 Reynolds Score Blood Edema Fundus Height Fundus Units Glucose Ketones Leukocytes Nitrite Labor Signs Protein Cervic Dilation Cervic Effacement Cervic Station Type Weight in lbs Pre/Post Dialysis Refused BP Diastolic BP Location Tested BP Systolic BP Type Fetus Heart Rate Present Fetus Movement Comments Flowsheet Date 02/20/2023 Reynolds Score Blood Edema Fundus Height Fundus Units Glucose Ketones Leukocytes Nitrite Labor Signs Protein Cervic Dilation Cervic Effacement Cervic Station neg none none trace Type Weight in lbs Pre/Post Dialysis Refused Weight 204.412279772309 BP Diastolic BP Location Tested BP Systolic BP Type 76 110 Fetus Heart Rate Present Fetus Movement A Yes Comments patient is having some heada manju, discharge, nausea and vomiting. mustafa's worsening exedrin makes her ill, try 2 fioricet at onset of hagrowth today 79% TESS upper limit, repeat 4 weeks, precautions reviewed GCT at next visit Flowsheet Date 03/20/2023 Reynolds Score Blood Edema Fundus Height Fundus Units Glucose Ketones Leukocytes Nitrite Labor Signs Protein Cervic Dilation Cervic Effacement Cervic Station Type Weight in lbs Pre/Post Dialysis Refused BP Diastolic BP Location Tested BP Systolic BP Type Fetus Heart Rate Present Fetus Movement Comments Flowsheet Date 03/20/2023 Reynolds Score Blood Edema Fundus Height Fundus Units Glucose Ketones Leukocytes Nitrite Labor Signs Protein Cervic Dilation Cervic Effacement Cervic Station Type Weight in lbs Pre/Post Dialysis Refused Weight 205.808182014025 BP Diastolic BP Location Tested BP Systolic BP Type 65 R arm 103 sitting Fetus Heart Rate Present Fetus Movement A Yes Comments efw 84% doing well, rx for g lucose and rhogam given, education and precautions, f/u 2 weeks rpt us in 4 weeks Flowsheet Date 04/03/2023 Reynolds Score Blood Edema Fundus Height Fundus Units Glucose Ketones Leukocytes Nitrite Labor Signs Protein Cervic Dilation Cervic Effacement Cervic Station neg none 32 none trace Type Weight in lbs Pre/Post Dialysis Refused Weight 207.419204163037 BP Diastolic BP Location Tested BP Systolic BP Type 79 124 Fetus Heart Rate Present A 145 Present Fetus Movement A Yes Comments patient is having some disch arge and nausea. doing well hiv and h/h next visit , also has growth us, precautions and education, call for preadmit Flowsheet Date 04/17/2023 Reynolds Score Blood Edema Fundus Height Fundus Units Glucose Ketones Leukocytes Nitrite Labor Signs Protein Cervic Dilation Cervic Effacement Cervic Station Type Weight in lbs Pre/Post Dialysis Refused BP Diastolic BP Location Tested BP Systolic BP Type Fetus Heart Rate Present Fetus Movement Comments Flowsheet Date 04/17/2023 Reynolds Score Blood Edema Fundus Height Fundus Units Glucose Ketones Leukocytes Nitrite Labor Signs Protein Cervic Dilation Cervic Effacement Cervic Station neg none none trace Type Weight in lbs Pre/Post Dialysis Refused Weight 210.514247081946 BP Diastolic BP Location Tested BP Systolic BP Type 73 113 Fetus Heart Rate Present Fetus Movement A Yes Comments patient is having contractio ns, pain, discharge, and nausea. reviewed precautions, call for preadmit, efw 80%, +FM f/u 2 weeks Flowsheet Date 05/01/2023 Reynolds Score Blood Edema Fundus Height Fundus Units Glucose Ketones Leukocytes Nitrite Labor Signs Protein Cervic Dilation Cervic Effacement Cervic Station neg none 35 none trace Type Weight in lbs Pre/Post Dialysis Refused Weight 210.368217024969 BP Diastolic BP Location Tested BP Systolic BP Type 73 107 Fetus Heart Rate Present A 150 Fetus Movement A Yes Comments patient is having some pain, discharge, swelling, nausea and vomiting. +FM, precautions and education, gbs next visit Flowsheet Date 05/15/2023 Reynolds Score Blood Edema Fundus Height Fundus Units Glucose Ketones Leukocytes Nitrite Labor Signs Protein Cervic Dilation Cervic Effacement Cervic Station Type Weight in lbs Pre/Post Dialysis Refused BP Diastolic BP Location Tested BP Systolic BP Type Fetus Heart Rate Present Fetus Movement Comments Flowsheet Date 05/15/2023 Reynolds Score Blood Edema Fundus Height Fundus Units Glucose Ketones Leukocytes Nitrite Labor Signs Protein Cervic Dilation Cervic Effacement Cervic Station 3cm 70% -2 Type Weight in lbs Pre/Post Dialysis Refused BP Diastolic BP Location Tested BP Systolic BP Type Fetus Heart Rate Present Fetus Movement Comments efw 80%, doing well, was in ed with migraine last week precautions reviewed, IOL 05/30 , gbs collected Flowsheet Date 05/22/2023 Reynolds Score Blood Edema Fundus Height Fundus Units Glucose Ketones Leukocytes Nitrite Labor Signs Protein Cervic Dilation Cervic Effacement Cervic Station neg none none trace 4cm 70% -2 Type Weight in lbs Pre/Post Dialysis Refused Weight 215.399977673158 BP Diastolic BP Location Tested BP Systolic BP Type 81 125 Fetus Heart Rate Present Fetus Movement A Yes Comments Patient is having some contr actions, pressure, pain, swelling, nausea and vomiting. precautions reviewed +FM, precautions and education done Flowsheet Date 05/29/2023 Reynolds Score Blood Edema Fundus Height Fundus Units Glucose Ketones Leukocytes Nitrite Labor Signs Protein Cervic Dilation Cervic Effacement Cervic Station 39 5cm 70% -2 Type Weight in lbs Pre/Post Dialysis Refused Weight 219.352288118118 BP Diastolic BP Location Tested BP Systolic BP Type 80 117 Fetus Heart Rate Present A 136 Present Fetus Movement Comments labor precautions reviewed, iol 05/30 at 1200, +FM, education done Menstrual History Last Menstrual Date Menses Monthly On Bcp Conception Prior Menses Frequency Hcg Plus Date Menarche Onset Age 0708/31/2022 Genetic Screening And Infection History Question Response Note Mental Retardation/Autism false Patient's Age Will Be 35 Years Or Older At Estim ated Date of Delivery false Thalassemia (Welsh, Turkmen, Mediterranean, Or Background): MCV < 80 false Neural Tube Defect (Meningomyelocele, Spina Bifi da, Or Anencephaly) false Congenital Heart Defect false Down Syndrome false Ranulfo-Sachs (eg, Jain, Cajun, Kazakh-Angolan) f alse [place] Disease false Sickle Cell Disease Or Trait () false Hemophilia Or Other Blood Disorders false Muscular Dystrophy false Cystic Fibrosis false [place]'s Chorea false Intellectual Disability/Autism false If Yes, Was Person Tested For Fragile X? false Other Inherited Genetic Or Chromosomal Disorder false Maternal Metabolic Disorder (eg, Type 1 Diabetes , PKU) false Patient Or Baby's Father Had A Child With Defects Not Listed Above false Recurrent Loss, Or A Stillbirth false Medications (including Suppl ements, Vitamins, Herbs, OTC Drugs), Illicit/Recreational Drugs, Alcohol false If Yes, Agent(s) And Strength/Dosage false Any Other Genetic History false Live With Someone With TB Or Exposed To TB false Patient Or Partner Has History Of Genital Herpes false Rash Or Viral Illness Since Last Menstrual Perio d false History Of STD, Gonorrhea, Chlamydia, HPV, Syphi lis false Other Infection History false History of HIV false History of Hepatitis false Prior GBS-infected child false Hemoglobinopathy Or Carrier false Other Structural Defect false Recent Travel History Outside of Country false Delivery Information Delivery Date Delivery Type Labor Anesthesia Weeks Gestation Incision Type Labor Labor Length Hrs Delivered By Post Complications Tubal Sterilization Discharge Date Comments [facility] idural 38.6 false Jyothi Gar CNM Anxiety in ,History of migraine, Placenta circumval tiara,RhD negative Discharge Information Feeding Method Contraceptive Method Maternal HG B and HCT Levels
--- OUTSIDE RECORDS SUMMARY | 2024-09-02 11:08 | XMS_ITS | Continuity of Care Document ---
Author Organization [facility] Address [address] [place] [address] Assessment Encounter Date Assessment Date Assessment LastModified by Organization Details LastModified Time 09/02/2024 09/02/2024 Patient is __34_weeks . Discussed plan. Not available 09/02/2024 11:30:57 Plan of Treatment [...] Not available OB ROUTINE 2024 09:45A M Jyothi Gar CNM Not available Not available Not available U/S OB BPP 2024 09:00A M ULTRASOUND Not available Not available Not available NST 2024 09:30A M NST SCHEDULE Not available Not available Not available OB ROUTINE 2024 10:15A M DEIRDRE OdonnellM Not available Not available Not available U/S OB BPP 2024 08:30A M ULTRASOUND Not available Not available Not available NST 2024 09:00A M NST SCHEDULE Not available Not available Not available OB ROUTINE 2024 09:30A M Jyothi Gar, DEIRDREM Not available Not available Not available Lab None recorde d. Referral None recorde d. Procedures None recorde d. Surgeries None recorde d. Imaging None recorde d. Medication Orders None recorde d. Patient TargetsNo targets recorded. Patient InstructionsNo instructions recorded. Reason for Referral None Reported. Results Created Date Observation Date Name Description Value Unit Range Abnormal Flag Note LastModifiedBy Organization Detail LastModifiedTime 04/01/1904/01/2024 US, obste tric, nucha l trans lucen cy No observ ation record ed. [address], [place], [address], 04/01/2024 13:26:18 04/01/19 25 04/01/2024 US, obste tric, follo w-up No observ ation record ed. [email or web address] [address], [place], [address], 04/02/2024 19:09:43 05/28/19 25 05/27/2024 US, obste tric, 2nd or 3rd trime ster No observ ation record ed. [email or web address] [place] [address], [place], [address], 05/27/2024 18:30:14 05/28/19 25 05/27/2024 US, obste tric, follo w-up No observ ation record ed. [email or web address] [address], [place], [address], 05/28/2024 19:51:54 06/25/19 25 06/24/2024 US, obste tric, follo w-up No observ ation record ed. [address], [place], [address], 06/24/2024 13:24:57 06/25/19 25 06/24/2024 US, obste tric, follo w-up No observ ation record ed. [address], [place], [address], 06/26/2024 11:58:00 07/23/19 25 07/22/2024 US, obste tric, follo w-up No observ ation record ed. [email or web address] [address], [place], [address], 08/07/2024 17:48:54 07/23/1907/22/2024 US, obste tric, follo w-up No observ ation record ed. [email or web address] [place] [address], [place], [address], 07/22/2024 17:25:32 09/03/19 US, obste tric, follo w-up No observ ation record ed. [facility] [address], [place], [address], 09/02/2024 10:32:14 09/03/1909/02/2024 US, obste tric, follo w-up No observ ation record ed. [email or web address] [address], [place], [address], 09/02/2024 10:37:04 Result Notes None recorded. Problems Name Problem SNOMED Code Status Onset Date Resolution Date Notes Provider Name and Address Organization Details Recorded Time Pregnanc y 40625800 Completed 202009/27/2020 Denita bates [facility] 5 11:45:22 Asthma 105330528 Completed Doesn't use inhaler Alyssa bates [facility] 1 15:09:35 Status migraino amadeo 683895697 Completed Rare migraine - no meds Alyssa bates [facility] 1 15:09:35 Cigarett e smoker 87146890 Completed Alyssa johnston [facility], [facility] 1 15:09:35 Smoker 52621692 Completed 202012/06/2021 Taylor Crenshaw [facility], [facility] 2 12:21:15 History of delibera te self harm 172216307 Completed 202004/28/2020 scars from cutting Jeb Guzmán [facility], [facility] 1 16:27:56 Marginal insertio n of umbilica l cord 58600536 Completed 2020 growth u/s Alyssa johnston [facility], [facility] 1 15:09:35 Cyst of right Bartholi n's gland duct 3921995362 1814316 Completed 202112/06/2021 Taylor Crenshaw [facility], [facility] 2 12:21:14 Pregnanc y 47042483 Completed 202206/03/2023 Denita Carr [facility], [facility] 5 11:45:22 Anxiety in pregnanc y 7279079894 9109 Completed sertrali ne Jeb Guzmán [facility] 4 12:56:37 History of migraine 743381265 Completed fioricet Vanedevan Conleyle [facility], [facility] 4 12:56:37 RhD negative 295499402 Completed Rhogam at 28wks - 03/20/23 1755 received Jeb Guzmán [facility] 4 12:56:37 Placenta circumva llata 9011511 Completed growth q 4 Vaneanewesley Guzmán null, [facility] 4 12:56:37 Mixed anxiety and depressi ve disorder 418431570 Active 2023 Denita Carr [facility], [facility] 4 11:35:49 Past pregnanc y history of ectopic pregnanc y 318686415 Active 2024 Denita Carr [facility], [facility] 5 12:36:25 History of abnormal cervical Papanico laou smear 441662825 Active 2024 Denita Carr [facility], [facility] 5 12:36:43 Pregnanc y 21622151 Active 2024 Denita Carr [facility], [facility] 5 11:45:22 Anxiety 77099748 Active no medicati on Jyothi Gar CNM [address], [place], [address], [facility] 5 13:58:14 History of migraine 554393869 Active Jyothi Gar CNM [address], [place], [address], [facility] 5 13:58:43 Asthma 858803355 Active Jyothi Gar CNM [address], [place], [address], [facility] 5 13:59:22 Hemoglob in A1c measurem ent Active Elevated 5.7 early 1hr gtt @ 20wks Mandie Finch [facility] 5 14:15:24 Body mass index 30+ - obesity 487698462 Active WEEKLY ANTENATA L TESTING @ 37WKS Mandie Finhc [facility] 5 17:10:50 Anemia 030960695 Active 2024 Denita bates, [facility] 12:39:33 Problem Notes None recorded. Procedures Surgical History Date Name Laterality Status Provider Name and Address Organization Details Recorded Time 01/31/20 24 Date of Last Pap Smear completed Denita Carr [facility] 01/31/2024 11:36:41 06/27/19 22 Colposcopy completed Stephanie Rodríguez MD [address], [place], [address], [facility] 06/26/2021 11:53:30 12/27/19 21 right salpingectomy completed Stephanie Rodríguez MD [address], [place], [address], [facility] 05/16/2021 11:06:27 10/25/19 21 IUD Insertion completed Fina Gasca MARLENE- [address], [place], [address], [facility] 10/24/2020 12:21:00 10/22/19 21 Bartholin Cyst Drainage completed Jyothi Gar CNM [address], [place], [address], [facility] 10/21/2020 15:13:00 10/22/19 21 excision of Bartholin's cyst completed Dentia Crar [facility] 10/21/2020 15:38:14 Imaging Results None recorded. [...] Available Not Available Vitals Date Recorded Body weight Systolic And Diastolic Provider Name and Address Organization Details Last Updated DateTime 09/02/2024 218004.93101 g 106/72 mm[Hg] Katie Beni [facility] 09/02/2024 10:57:11 Social History Question Answer Notes LastModified by Organizat ion Details LastModified Time Tobacco Smoking Status Current Every Day Smoker Jazmín Buck paulo, [facility] 03/20/2023 11:08:36 Do You Have An Advance Directive? No [email or web address] Information not available 05/02/2020 If You Are , What Was Your Level Of Alcohol Consumption Prior To ? Occasional Information not available 03/11/2024 Are You Blind Or Do You Have Difficulty Seeing? No [email or web address] Information not available 05/02/2020 What Is Your Level Of Caffeine Consumption? Moderate Information not available 05/02/2020 How Much Tobacco Do You Chew? None [email or web address] Information not available 05/02/2020 In The 14 Days Before Symptom Onset, Have You Had Close Contact With A Laboratory-confir med COVID-19 While That Case Was Ill? No [email or web address] Information not available 05/02/2020 In The 14 Days Before Symptom Onset, Have You Had Close Contact With A Person Who Is Under Investigation For COVID-19 While That Person Was Ill? No [email or web address] Information not available 05/02/2020 Have You Been To An Area Known To Be High Risk For COVID-19? No [email or web address] Information not available 05/02/2020 Are You Deaf Or Do You Have Serious Difficulty Hearing? No [email or web address] Information not available 05/02/2020 What Type Of Diet Are You Following? REGULAR Information not available 05/02/2020 What Is The Highest Grade Or Level Of School You Have Completed Or The Highest Degree You Have Received? NA08407-6 [email or web address] Information not available 05/02/2020 Are There Any Guns Present In Your Home? No Information not available 05/02/2020 Do You Use Protection During Sex? Usually [email or web address] Information not available 05/02/2020 Do You Use Your Seat Belt Or Car Seat Routinely? Yes Information not available 05/02/2020 Do You Have Smoke And Carbon Monoxide Detectors In Your Home? Yes [email or web address] Information not available 05/02/2020 At What Age Did You Start Smoking Tobacco? 13 Information not available 05/02/2020 How Much Tobacco Do You Smoke? No [email or web address] Information not available 07/22/2024 Do You Use Sunscreen Routinely? No [email or web address] Information not available 05/02/2020 How Many Years Have You Smoked Tobacco? 15 [email or web address] Information not available 07/22/2024 Have You Used IV Drugs? No Information not available 05/02/2020 Do You Have Difficulty Walking Or Climbing Stairs? No [email or web address] Information not available 03/20/2023 Sex: Unknown Functional Status Question Answer Note LastModified by Organizat ion Details LastModified Time Do you use any illicit or recreational drugs? No Information not available 04/11/2020 What is your level of alcohol consumption? None Information not available 04/11/2020 Are you able to walk? YESWOREST [email or web address] Information not available 05/02/2020 Are you able to care for yourself? 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 No [email or web address] Information not available 03/20/2023 What is your exercise level? None Information not available 04/11/2020 Mental Status Question Answer Note LastModified by Organization D etails LastModified Time Do you feel stressed (tense, restless, nervous, or anxious, or unable to sleep at night)? [id number] [email or web address] Information not available 07/22/2024 Family History Relationship Description Onset Age of this Age Resolved Age Notes LastModified by Organization Details LastModified Time Mother Seizure disorder [email or web address] Not available 2024 09:56:42 Sister Seizure disorder [email or web address] Not available 2024 09:56:42 Brother Seizure disorder [email or web address] Not available 2024 09:56:42 Maternal Aunt Diabetes mellitus Not available 2020 15:48:39 Maternal Uncle Diabetes mellitus Not available 2020 15:48:39 Medical History Condition Response Other Y Blood Transfusion N Dermatologic Disorders N Gestational Diabetes N Anxiety Disorder Y Autoimmune disease N Arthritis N Polyps N Infertility N Acid Reflux (GERD) N Cancer N Varicosities N Stroke N Neurologic/Epilepsy N Fibromyalgia N Headaches N Kidney Disease N Heart Problems N Kidney or Bladder Problems N Eating Disorder N Art (IVF or FET) N Hepatitis/Liver Disease N Urinary Tract Infection N Asthma Y Trauma/Violence N Thrombophilias N Allergies (Food, seasonal, environmental ) N Breast Cancer N Drug/Latex Allergies/Reactions N Lung Disease N Defects or Inherited Disease N Breast Problem N Hematologic disorders N Anesthesia Complications N History of STI Y Deep Vein Thrombosis N Polycystic ovary syndrome N History of abnormal pap Y Endometriosis N High Cholesterol N Thyroid Problems N GI Problems N Anemia N Psychiatric Illness N Ovarian Cancer N Diabetes N Pulmonary (TB, Asthma) N Eczema N Abuse/Domestic Violence N Depression/ depression Y Heart Disease N Pre-Eclampsia N Hypertension N Osteoporosis Y Gynecological History Statement/Question Response Date of Last [...] SNOMED-CT Code Diagnosis ICD10 Code Diagnosis Note [id number] Jyothi Gar CNM [place] [address] [address] 08/05/2024 17:50:53 08/16/2024 09:12:34 [id number] Jyothi Gar [facility] [address],[place] [address] 08/07/2024 11:20:28 08/07/2024 12:34:37 Gestation period, 30 weeks 30490378 Z3A.30 cont pnv [id number] [facility] [address],[place] [address] 08/19/2024 12:02:10 08/19/2024 12:25:52 Gestation period, 32 weeks 2263794 Z3A.32 [id number] Óscar Lincoln MD [place] [address],[place] [address] 09/02/2024 09:56:26 09/02/2024 10:37:01 Maternal obesity complicating , childbirth and the puerperium, antepartum 1100119980 07 O99.210 Z3A.34 [id number] Jyothi Gar [facility] [address],[place] [address] 09/02/2024 09:56:39 09/02/2024 11:34:04 Gestation period, 34 weeks 65471278 Z3A.34 Health Concerns Section Related Observation LastModified by Organization Detai ls LastModified Time None Recorded Concern Status LastModified by Organization Details LastModified Time None Recorded Payers Encounter Date Sequence Insurance Name Policy Number Policy Telles Covered Member ID Telles Member ID Guarantor Name 09/02/2024 1 [facility] ON OR AFTER 08/25/20 (MEDICAID REPLACEMENT - HMO) Maura Dillard [id number] Haile Dillard OBGyn Episode Ob Episode Information Episode Created Date Number of Fetuses Patient Bloodtype Patient rh Status Prepregnancy Weight lbs Domestic Partner Domestic Partner Phone Father Name Acrobatic Rigger Status 04/01/19 25 1 A Negative 215 [address] Dami OPEN Fetus Data First Name Last Name Admitted to NICU Weight (g) Sex Living Outcome Pediatric Complications Fetus ID Race Codes Race Delivery Type [id number] Problems Problem Notes bmi- 3832 wk growth us Problem Name Start Date End Date Resolution Snomed Code Not e Anxiety 31931223 no medicat ion Body mass index 30+ - obesity 831275140 WEEKLY ANTENATA L TESTING @ 37WKS Asthma 703234669 History of migraine 421377044 Anemia 06/25/2024 873213107 Timoteo Calculation Initial Timoteo Date Initial Exam [...] Ultra Sound Latest Days Gestation 0 0 Pre- Flowsheet Flowsheet Date 04/01/2024 Reynolds Score Blood Edema Fundus Height Fundus Units Glucose Ketones Leukocytes Nitrite Labor Signs Protein Cervic Dilation Cervic Effacement Cervic Station neg none none trace Type Weight in lbs Pre/Post Dialysis Refused Weight 219.604350832735 BP Diastolic BP Location Tested BP Systolic [...] Weight in lbs Pre/Post Dialysis Refused Weight 218.168082856394 BP Diastolic BP Location Tested BP Systolic BP Type 78 115 Fetus Heart Rate Present Fetus Movement A Yes Comments Patient is having migraine a nd nausea. ok for excedrin tension, doing well, +FM, has anatomy scan scheduled, boy-Leland, precautions and education, f/u 4 weeks Flowsheet [...] Weight in lbs Pre/Post Dialysis Refused Weight 220.908864141496 BP Diastolic BP Location Tested BP Systolic [...] Type Weight in lbs Pre/Post Dialysis Refused 224.299925971113 BP Diastolic BP Location Tested BP Systolic [...] Weight in lbs Pre/Post Dialysis Refused Weight 224.503832592426 BP Diastolic BP Location Tested BP Systolic [...] Weight in lbs Pre/Post Dialysis Refused Weight 225.139435202385 BP Diastolic BP Location Tested BP Systolic [...] Weight in lbs Pre/Post Dialysis Refused Weight 227.0897992778 BP Diastolic BP Location Tested BP Systolic [...] Type Weight in lbs Pre/Post Dialysis Refused 226.801163116740 BP Diastolic BP Location Tested BP Systolic [...]
--- OUTSIDE RECORDS SUMMARY | 2024-09-02 11:08 | XMS_ITS | Encounter Summary ---
Author Organization [facility] Address [facility] [place] [address] Care Team Providers Care Lacquer Pin Press Operator Name Role Phone None, Provider Primary Care Provider Unavaila ble None, Provider Primary Care Provider Unavaila ble None, Provider MD Unavailable Unavailable Encounter Details Date Type Department Care Team (Latest Contact Info) Description 12/31/2017 Abstract [facility] , Generic Conversion, Social History Tobacco Use Types Packs/Day Years Used Date Smoking Tobacco: Never Assessed Comments Unknown Sex and Gender Information Value Date Recorded Sex Assigned at Not on file Legal Sex Female 8:45 PM CDT Gender Identity Not on file Sexual Orientation Not on file documented as of this encounter Plan of Treatment Not on file documented as of this encounter Visit Diagnoses Not on filedocumented in this encounter Care Teams Lacquer Pin Press Operator Relationship Specialty Start Date End Date None, ProviderMD PCP - General 04/08/21 07/02/21 None, ProviderMD PCP - General 07/03/21 None, ProviderMD 07/03/21 documented as of this encounter
--- OUTSIDE RECORDS SUMMARY | 2024-09-02 11:09 | XMS_ITS | Continuity of Care Document ---
Author Organization [facility] Address [address] [place] [address] Assessment No assessment recorded. Plan of Treatment Reminders Order Date Submit Date Provider Last Modified By Organization Details Last Modified Time Details Appointments U/S OB GROWTH 2024 09:00A M ULTRASOUND Not available Not available Not available OB ROUTINE 2024 10:45A M DEIRDRE OdonnellM Not available Not available Not available OB [...] available OB ROUTINE 2024 10:15A M Jyothi Gar CNM Not available Not available Not available U/S OB BPP 2024 08:30A M ULTRASOUND Not available Not available Not available NST 2024 09:00A M NST SCHEDULE Not available Not available Not available OB ROUTINE 2024 09:30A M DEIRDRE OdonnellM Not available Not available Not available Lab None recorde d. Referral None recorde d. Procedures None recorde d. Surgeries None recorde d. Imaging US, obstetr ic, follow- up 2024 07 025 [facility], [address], [address], [place], [address], 09/02/2024 10:37:01 Medication Orders None recorde d. Patient TargetsNo targets recorded. Patient InstructionsNo instructions recorded. Reason for Referral None Reported. Results Created Date Observation Date Name Description Value Unit Range Abnormal Flag Note LastModifiedBy Organization Detail LastModifiedTime 04/01/1904/01/2024 US, obste tric, nucha l trans lucen cy No observ ation record ed. [email or web address] [facility] [address], [place], [address], 04/01/2024 13:26:18 04/01/19 25 04/01/2024 US, obste tric, follo w-up No observ ation record ed. [address], [place], [address], 04/02/2024 19:09:43 05/28/19 25 05/27/2024 US, obste tric, 2nd or 3rd trime ster No observ ation record ed. [email or web address] [address], [place], [address], 05/27/2024 18:30:14 05/28/19 25 05/27/2024 US, obste tric, follo w-up No observ ation record ed. [address], [place], [address], 05/28/2024 19:51:54 06/25/19 25 06/24/2024 US, obste tric, follo w-up No observ ation record ed. [email or web address] [facility] [address], [place], [address], 06/24/2024 13:24:57 06/25/19 25 06/24/2024 US, obste tric, follo w-up No observ ation record ed. [email or web address] [address], [place], [address], 06/26/2024 11:58:00 07/23/19 25 07/22/2024 US, obste tric, follo w-up No observ ation record ed. [email or web address] [address], [place], [address], 08/07/2024 17:48:54 07/23/19 25 07/22/2024 US, obste tric, follo w-up No observ ation record ed. [email or web address] [facility] [address], [place], [address], 07/22/2024 17:25:32 09/03/19 US, obste tric, follo w-up No observ ation record ed. [email or web address] [address], [place], [address], 09/02/2024 10:32:14 09/03/1909/02/2024 US, obste tric, follo w-up No observ ation record ed. [email or web address] [address], [place], [address], 09/02/2024 10:37:04 Result Notes None recorded. Problems Name Problem SNOMED Code Status Onset Date Resolution Date Notes Provider Name and Address Organization Details Recorded Time Pregnanc y 61738632 Completed 202009/27/2020 Denita bates, [facility] 5 11:45:22 Asthma 484995113 Completed Doesn't use inhaler Alyssa bates [facility] 1 15:09:35 Status migraino amadeo 139371964 Completed Rare migraine - no meds Alyssa bates, [facility] 1 15:09:35 Cigarett e smoker 45684598 Completed Alyssa johnston [facility], [facility] 1 15:09:35 Smoker 37747497 Completed 202012/06/2021 Taylor Crenshaw [facility], [facility] 2 12:21:15 History of delibera te self harm 407011753 Completed 202004/28/2020 scars from cutting Vanedevan Guzmán [facility], [facility] 1 16:27:56 Marginal insertio n of umbilica l cord 51451391 Completed 2020 growth u/s Alyssa johnston [facility], [facility] 1 15:09:35 Cyst of right Bartholi n's gland duct 2267595456 6483095 Completed 202112/06/2021 Taylor Crenshaw [facility], [facility] 2 12:21:14 Pregnanc y 09030672 Completed 202206/03/2023 Denita Carr [facility] 5 11:45:22 Anxiety in pregnanc y 7390379863 9109 Completed sertrali ne Vanedevan Sorensenizzle [facility], [facility] 4 12:56:37 History of migraine 081698490 Completed fioricet Jeb Guzmán [facility], [facility] 4 12:56:37 RhD negative 368789183 Completed Rhogam at 28wks - 03/20/23 1755 received Jeb Guzmán [facility], [facility] 4 12:56:37 Placenta circumva llata 5228635 Completed growth q 4 Britaney Ramirez null, [facility] 4 12:56:37 Mixed anxiety and depressi ve disorder 787244842 Active 2023 Denita Carr [facility], [facility] 4 11:35:49 Past pregnanc y history of ectopic pregnanc y 405470134 Active 2024 Denita Carr [facility], [facility] 5 12:36:25 History of abnormal cervical Papanico laou smear 310482803 Active 2024 Denita Carr [facility], [facility] 5 12:36:43 Pregnanc y 01388734 Active 2024 Denita Carr [facility], [facility] 5 11:45:22 Anxiety 21699014 Active no medicati on Jyothi Gar CNM [address], [place], [address], [facility] 5 13:58:14 History of migraine 078904732 Active Jyothi Gar CNM [address], [place], [address], [facility] 5 13:58:43 Asthma 636776161 Active Jyothi Gar CNM [address], [place], [address], [facility] 5 13:59:22 Hemoglob in A1c measurem ent Active Elevated 5.7 early 1hr gtt @ 20wks Mandie Finch [facility] 5 14:15:24 Body mass index 30+ - obesity 625517656 Active WEEKLY ANTENATA L TESTING @ 37WKS Mandie Finch [facility] 17:10:50 Anemia 755113237 Active 2024 Denita bates, [facility] 12:39:33 Problem Notes None recorded. Procedures Surgical History Date Name Laterality Status Provider Name and Address Organization Details Recorded Time 01/31/20 24 Date of Last Pap Smear completed Denita Carr [facility] 01/31/2024 11:36:41 06/27/19 22 Colposcopy completed Stephanie Rodríguez MD [address], [place], [address], [facility] 06/26/2021 11:53:30 12/27/19 21 right salpingectomy completed Stephanie Rodríguez MD [address], [place], [address], [facility] 05/16/2021 11:06:27 10/25/19 21 IUD Insertion completed Fina Gasca [facility]- [address], [place], [address], [facility] 10/24/2020 12:21:00 10/22/19 21 Bartholin Cyst Drainage completed Jyothi Gar CNM [address], [place], [address], [facility] 10/21/2020 15:13:00 10/22/19 21 excision of Bartholin's cyst completed Denita Carr [facility] 10/21/2020 15:38:14 Imaging Results None recorded. [...] Address Organization Details Last Updated DateTime 09/02/2024 984982.14561 g 106/72 mm[Hg] Katie Beni [facility] 09/02/2024 10:57:11 Social History Question Answer Notes LastModified by Organizat ion Details LastModified Time Tobacco Smoking Status Current Every Day Smoker Jazmín Buck paulo, [facility] 03/20/2023 11:08:36 Do You Have An Advance Directive? No Information not available 05/02/2020 If You Are , What Was Your Level Of Alcohol Consumption Prior To ? Occasional [email or web address] Information not available 03/11/2024 Are You Blind Or Do You Have Difficulty Seeing? No [email or web address] Information not available 05/02/2020 What Is Your Level Of Caffeine Consumption? Moderate [email or web address] Information not available 05/02/2020 How Much Tobacco Do You Chew? None Information not available 05/02/2020 In The 14 Days Before Symptom Onset, Have You Had Close Contact With A Laboratory-confir med COVID-19 While That Case Was Ill? No [email or web address] Information not available 05/02/2020 In The 14 Days Before Symptom Onset, Have You Had Close Contact With A Person Who Is Under Investigation For COVID-19 While That Person Was Ill? No [email or web address] Information not available 05/02/2020 Have You Been To An Area Known To Be High Risk For COVID-19? No [email or web address] Information not available 05/02/2020 Are You Deaf Or Do You Have Serious Difficulty Hearing? No Information not available 05/02/2020 What Type Of Diet Are You Following? REGULAR [email or web address] Information not available 05/02/2020 What Is The Highest Grade Or Level Of School You Have Completed Or The Highest Degree You Have Received? [id number] [email or web address] Information not available 05/02/2020 Are There Any Guns Present In Your Home? No [email or web address] Information not available 05/02/2020 Do You Use Protection During Sex? Usually Information not available 05/02/2020 Do You Use Your Seat Belt Or Car Seat Routinely? Yes [email or web address] Information not available 05/02/2020 Do You Have Smoke And Carbon Monoxide Detectors In Your Home? Yes [email or web address] Information not available 05/02/2020 At What Age Did You Start Smoking Tobacco? 13 [email or web address] Information not available 05/02/2020 How Much Tobacco Do You Smoke? No [email or web address] Information not available 07/22/2024 Do You Use Sunscreen Routinely? No [email or web address] Information not available 05/02/2020 How Many Years Have You Smoked Tobacco? 15 [email or web address] Information not available 07/22/2024 Have You Used IV Drugs? No [email or web address] Information not available 05/02/2020 Do You Have Difficulty Walking Or Climbing Stairs? No Information not available 03/20/2023 Sex: Unknown Functional Status Question Answer Note LastModified by Organizat ion Details LastModified Time Do you use any illicit or recreational drugs? No Information not available 04/11/2020 What is your level of alcohol consumption? None Information not available 04/11/2020 Are you able to walk? YESWOREST [email or web address] Information not available 05/02/2020 Are you able to care for yourself? 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 No [email or web address] Information not available 03/20/2023 What is your exercise level? None Information not available 04/11/2020 Mental Status Question Answer Note LastModified by Organization D etails LastModified Time Do you feel stressed (tense, restless, nervous, or anxious, or unable to sleep at night)? [id number] [email or web address] Information not available 07/22/2024 Family History Relationship Description Onset Age of this Age Resolved Age Notes LastModified by Organization Details LastModified Time Mother Seizure disorder [email or web address] Not available 2024 09:56:42 Sister Seizure disorder [email or web address] Not available 2024 09:56:42 Brother Seizure disorder Not available 2024 09:56:42 Maternal Aunt Diabetes [...] SNOMED-CT Code Diagnosis ICD10 Code Diagnosis Note [id number] Jyothi Gar CNM [facility] [address] [address] 08/05/2024 17:50:53 08/16/2024 09:12:34 [id number] [facility] [address],[place] [address] 08/07/2024 11:20:28 08/07/2024 12:34:37 Gestation period, 30 weeks 07591800 Z3A.30 cont pnv [id number] [facility] [address],[place] [address] 08/19/2024 12:02:10 08/19/2024 12:25:52 Gestation period, 32 weeks 8742266 Z3A.32 [id number] Óscar Lincoln MD [facility] [address],[place] [address] 09/02/2024 09:56:26 09/02/2024 10:37:01 Maternal obesity complicating , childbirth and the puerperium, antepartum 4812964295 07 O99.210 Z3A.34 [id number] Jyothi Gar [facility] [address],[place] [address] 09/02/2024 09:56:39 09/02/2024 11:34:04 Gestation period, 34 weeks 54636521 Z3A.34 Health Concerns Section Related Observation LastModified by Organization Detai ls LastModified Time None Recorded Concern Status LastModified by Organization Details LastModified Time None Recorded Payers Encounter Date Sequence Insurance Name Policy Number Policy Telles Covered Member ID Telles Member ID Guarantor Name 09/02/2024 1 [facility] ON OR AFTER 08/25/20 (MEDICAID REPLACEMENT - HMO) Maura Dillard [id number] Haile Dillard OBGyn Episode Ob Episode Information Episode Created Date Number of Fetuses Patient Bloodtype Patient rh Status Prepregnancy Weight lbs Domestic Partner Domestic Partner Phone Father Name Process Improvement Manager Status 04/01/19 25 1 A Negative 215 [address] OPEN Fetus Data First Name Last Name Admitted to NICU Weight (g) Sex Living Outcome Pediatric Complications Fetus ID Race Codes Race Delivery Type [id number] Problems Problem Notes bmi- 3832 wk growth us Problem Name Start Date End Date Resolution Snomed Code Not e Anxiety 01298933 no medicat ion Body mass index 30+ - obesity 590229866 WEEKLY ANTENATA L TESTING @ 37WKS Asthma 273301533 History of migraine 126278722 Anemia 06/25/2024 465620122 Timoteo Calculation Initial Timoteo Date Initial Exam [...] Weight in lbs Pre/Post Dialysis Refused Weight 219.791619785738 BP Diastolic BP Location Tested BP Systolic [...] Weight in lbs Pre/Post Dialysis Refused Weight 218.966483063097 BP Diastolic BP Location Tested BP Systolic [...] Weight in lbs Pre/Post Dialysis Refused Weight 220.103075393617 BP Diastolic BP Location Tested BP Systolic [...] Type Weight in lbs Pre/Post Dialysis Refused 224.996039565400 BP Diastolic BP Location Tested BP Systolic [...] Weight in lbs Pre/Post Dialysis Refused Weight 224.656707689505 BP Diastolic BP Location Tested BP Systolic [...] Weight in lbs Pre/Post Dialysis Refused Weight 225.750367323656 BP Diastolic BP Location Tested BP Systolic [...] Weight in lbs Pre/Post Dialysis Refused Weight 227.0279894496 BP Diastolic BP Location Tested BP Systolic [...] Type Weight in lbs Pre/Post Dialysis Refused 226.817825357177 BP Diastolic BP Location Tested BP Systolic [...]
[2024-09-02 12:46] LABS: HIV 1/2 Ab P24 Ag Result Negative (Negative)
== END 2024-09-02 11:00 | disposition home or self-care (01) ==
LOC: ANHLAB 11:06
PROVIDERS: Visit Provider Advanced Practice Midwife
DX: Z36.89 Encounter for other specified antenatal screening (principal); O36.0130 Maternal care for anti-D [Rh] antibodies, third trimester, not applicable or unspecified; Z3A.00 Weeks of gestation of pregnancy not specified
CPT/HCPCS: 36415; 86703; G0432

== ENCOUNTER 2024-10-07 04:56 | Inpatient (IN) | payer OTHER, SELFPAY ==
[2024-10-07] VITALS (66 sets, daily range): BP systolic 75–137; BP diastolic 47–101; PULSE 62–112; RESP 16–18; TEMP 36.2–36.9; O2SAT 85–100; BMI 39.0
--- OUTSIDE RECORDS SUMMARY | 2024-10-07 05:02 | XMS_ITS | Encounter Summary ---
Author Organization [facility] Address [facility] [place] [address] Care Team Providers Care Cabana Attendant Name Role Phone None, Provider Primary Care Provider Unavaila ble None, Provider Primary Care Provider Unavaila ble None, Provider MD Unavailable Unavailable Encounter Details Date Type Department Care Team (Latest Contact Info) Description 12/31/2017 Abstract [facility] , Generic Conversion, Social [...] on filedocumented in this encounter Care Teams Cabana Attendant Relationship Specialty Start Date End Date None, ProviderMD PCP - General 04/08/21 07/02/21 None, ProviderMD PCP - General 07/03/21 None, ProviderMD 07/03/21 documented as of this encounter
--- OUTSIDE RECORDS SUMMARY | 2024-10-07 05:02 | XMS_ITS | Clinical Summary ---
Author Organization [facility] Address [address] [place] [address] Care Team Providers Care Ceramic Mold Designer Name Role Phone None, Provider MD Primary [...] age to complete this topic Insurance [address] [place] [address] [place] Care Teams Ceramic Mold Designer Relationship Specialty Start Date End Date None, Provider, PCP - General 07/03/21 None, ProviderMD 07/03/21
[2024-10-07 05:33] LABS: Hematocrit 30.4 % (37.0-47.0); Hemoglobin 9.6 g/dL (12.0-15.0); Immature Granulocyte Percent A 0.5 % (0-0.5); Lymphocytes Absolute Auto 2.05 K/mm3 (0.9-3.2); Mean Corpuscular HGB Conc 31.6 g/dl (32-36); Mean Corpuscular Hemoglobin 29.4 pg (26-34); Mean Corpuscular Volume 93.0 fl (80-100); Nucleated Red Blood Cells Absolute Auto 0.000 K/mm3 (0.0-0.012); Nucleated Red Blood Cells Perc 0.0 % (0.0-0.2); Platelet Count Result 156 k/mm3 (150-375); Red Blood Count 3.27 M/mm3 (4.2-5.4); White Blood Count 8.0 K/mm3 (4.5-10.0)
[2024-10-07] MEDS: LACTATED RINGERS 1,000 ML 125 ML IV CONT ×2 (05:53→06:58)
--- NOTE | 2024-10-07 05:53 | WPDANESEPP ---
Anes - Eval Pre Procedure Procedure: Labor epidural Date/Time: 10/07/24 05:53 Surgeon: Latonia Preop Diagnosis: Abdominal pain with contractions Pre Op Diagnosis: IOL Patient Data Age: 28 Gender: F Height: Weight: Last Vital Signs Pulse 85 10/07/24 05:45 BP 128/82 10/07/24 05:45 Allergies Allergy/AdvReac Type Severity Reaction Status Date / Time benzocaine Allergy Itching Verified 05/29/23 23:18 latex Allergy Itching Verified 05/29/23 23:18 Home Medications ?Medication ?Instructions ?Recorded ?Confirmed ?Type prenat.vits,nafisa,yxz-iqhp-ytbko 1 tablet PO DAILY 05/16/23 05/29/23 History sertraline 50 mg tablet 50 mg PO DAILY 05/16/23 05/29/23 History emqadrcbvr-zmsxsyiqnlnjt-coefmvje 1 tablet PO PRN PRN Headache 05/29/23 05/29/23 History 50 mg-325 mg-40 mg tablet ibuprofen 600 mg tablet 600 mg PO Q6H PRN Cramping #30 tabs 05/31/23 Rx Laboratory Tests 10/07/24 05:21 WBC 8.0 K/mm3 (4.5-10.0) RBC 3.27 L M/mm3 (4.2-5.4) Hgb 9.6 L g/dL (12.0-15.0) Hct 30.4 L % (37.0-47.0) MCV 93.0 fl (80-100) MCH 29.4 pg (26-34) MCHC 31.6 L g/dl (32-36) RDW 15.8 H % (11.5-14.5) Plt Count 156 k/mm3 (150-375) MPV 11.0 H fl (7.4-10.4) Immature Gran % (Auto) 0.5 % (0-0.5) Neut % (Auto) 67.6 % (45.5-73.1) Lymph % (Auto) 25.8 % (18.3-44.2) [place]more % (Auto) 5.8 % (2.6-8.5) Eos % (Auto) 0.0 % (0-4.4) Baso % (Auto) 0.3 % (0.2-1.2) Lymph # (Auto) 2.05 K/mm3 (0.9-3.2) [place] # (Auto) 0.5 K/mm3 (0.1-0.6) Eos # (Auto) 0.0 K/mm3 (0-0.3) Baso # (Auto) 0.0 K/mm3 (0.0-0.1) Abs Immat Gran (auto) 0.04 H K/mm3 (0.00-0.031) Absolute Neuts (auto) 5.4 K/mm3 (1.3-6.7) Absolute Nucleated RBC 0.000 K/mm3 (0.0-0.012) Nucleated RBC % 0.0 % (0.0-0.2) : gestational age HCG: positive Patient hx anesthesia problems: none Family hx anesthesia problems: none Results Review: All pre-operative results and documents have been reviewed as part of the pre-operative evaluation. [facility] Past Medical History Medical History Obesity Scoliosis Anxiety and depression Asthma Migraine Family History Family History Sibling Autism Epilepsy Mother Epilepsy Sibling Epilepsy Social History Social History Substance use: never Do You Feel Safe in your Home?: Yes Lack of Transportation: No Lack of Food: Never True Current Housing: I Have Housing Concerned About Future Housing: No Difficulty Paying Gas/Electric Bills: No Difficulty Paying for Meds: No Currently Unemployed: No Education: High School Diploma/GED Difficulty w/ Childcare or Family Care: No Spiritual care concerns: No Exam Day of Procedure 10/07/24 05:53 Patient weight: obese
[2024-10-07] MEDS: OXYTOCIN 30 UNITS/NS 500 ML 30 UNITS/500 ML BAG IV CONT (05:57)
[2024-10-07 06:25] LABS: Syphilis IgG/IgM Antibody Non-Reactive (Nonreactive)
--- NOTE | 2024-10-07 06:43 | LDADM ---
This patient, Maura Dillard, was admitted to Labor/Delivery/Recovery 103 on 10/07/24 at 04:56. Plans for labor, pain management and were discussed with patient. Patient/family oriented to hospital policies and general routines including ID bracelet, bed and alarms, visiting hours, pain management, procedures, bathroom and other care routines, personal items, smoking policy, room service/diet and guest tray routines, security routines, and visiting hours. Patient/Family are encouraged to report perceived risks to care and to ask questions if they do not understand what they are told or what they should do. See OBIX for further documentation.
--- NOTE | 2024-10-07 07:30 | WPDOBADMIT ---
Obstetrics - Admit Note Admission Note: record reviewed. No pertinent additions to the history and/or any subsequent changes in the physical findings that are not consistent with the expected course of the were found. Additions to the history and/or subsequent changes in the physical findings follow. Admit IOL, sve /-2 AROM clear, odorless fluid, anticipate vaginal delivery
[2024-10-07] MEDS: LIDOCAINE 1% LOCAL INJ 20 ML VIAL (08:40)
--- NOTE | 2024-10-07 08:47 | P.PCNOB_ITS ---
OB - Vaginal Delivery Note Procedure Delivery date: 10/07/24 Intrapartal Events: Other Induction method: AROM and Per Pitocin Protocol Delivery monitor: External FHT and External Uterine Route of delivery: Episiotomy description: None Laceration Description: Superficial Delivery repair: vicryl Specimen: No Quantitative Blood Loss (ml): 150 Anesthesia type: Epidural Disposition: Floor Complications: No immediate complications [place] Baby Date of : 10/07/24 Time of : 08:32 Gestational Age by Date: 39 Infant gender: Male Weight (pounds): 8 Weight (ounces): 8 presentation: vertex position: Left Occiput Anterior Placenta delivery description: Expressed Cord Vessel Description: 3 Vessels, Nuchal Cord, Tight, Reduced and Clamped/Cut score one minute: 8 score five minutes: 9
[2024-10-07] MEDS: OXYTOCIN 30 UNITS/NS 500 ML 30 UNITS/500 ML BAG 125 UNITS IV CONT (09:12)
[2024-10-07] MEDS: WITCH HAZEL 40 PADS 1 PAD TOPICAL ×2 (10:44→13:26)
[2024-10-07] MEDS: BENZOCAINE 20% AER SPR (*SP) 56 GM CAN 1 SPRAY TOPICAL ×2 (10:44→13:26)
--- NOTE | 2024-10-07 10:57 | PC.NURSE ---
Patient transferred to post room #285 via wheelchair. Support person present. Oriented to unit, room, information board, rooming in, admission packet and security measures. Patient verbalizes understanding.
[2024-10-07] MEDS: IBUPROFEN 600 MG TABLET PO ×2 (13:26→19:16)
[2024-10-07] MEDS: DOCUSATE SODIUM 100 MG CAPSULE PO (17:47)
[2024-10-08 00:30] VITALS: BP 103/51; PULSE 71; RESP 16; TEMP 36.3; O2SAT 98
[2024-10-08 04:20] VITALS: BP 112/65; PULSE 75; RESP 18; TEMP 36.7; O2SAT 99
[2024-10-08 04:39] LABS: Hematocrit 26.4 % (37.0-47.0); Hemoglobin 8.1 g/dL (12.0-15.0)
[2024-10-08 08:00] VITALS: BP 117/79; PULSE 71; RESP 18; TEMP 36.1; O2SAT 100
[2024-10-08] MEDS: ACETAMINOPHEN 325 MG TABLET 650 MG PO (09:45)
[2024-10-08] MEDS: DOCUSATE SODIUM 100 MG CAPSULE PO (09:45)
--- NOTE | 2024-10-08 12:32 | WPDANLDPN2 ---
Anes-Prog Note L&D Date/Time: 10/08/24 12:32 Comfortable throughout: labor and delivery Neuraxial method: epidural Epidural/Spinal procedure site: clean & non-tender Neuro status: Neuro function grossly intact. Cardiovascular status: normal Respiratory status: normal Airway patency: baseline Mental status: baseline Vital Signs: Last Vital Signs Temp 36.1 C L 10/08/24 08:00 Pulse 71 10/08/24 08:00 Resp 18 10/08/24 08:00 BP 117/79 10/08/24 08:00 Pulse Ox 100 10/08/24 08:00 O2 Del Method Room Air 10/07/24 06:53 Pain score (VAS): 0 I/O: Intake & Output 10/07/24 10/08/24 10/08/24 23:59 07:59 15:59 Intake Total 240 Balance 240 Patient feedback: Patient satisfied with anesthetic care.
--- NOTE | 2024-10-08 13:04 | P.PNOB_ITS ---
OB - PN: Subj Subjective Date/time seen: 10/08/24 13:04 Patient comments: no complaints, pain well controlled, incisional pain, tolerating diet and flatus present OB - PN: Obj Data Labs 10/08/24 04:23 Labs: Laboratory Results - last 24 hr 10/08/24 04:23 Hgb 8.1 L Hct 26.4 L OB - PN A/P Plan day: 1 Plan: routine care Comments: No problems, routine care Time Spent With Patient Time: Total time spent is greater than 50% in coordination of care (as documented) at patient's floor/unit and/or counseling patient: Exam 2 Const: General: comfortable, no acute distress and alert Resp: Effort & Inspection: normal respiratory effort Auscultation: no crackles, no rales and no rhonchi Cardio: Rate: regular rate Heart sounds: no click, no murmurs and no rubs GI: Inspection: non-distended GI Palp: No Tenderness to palpation present (GI) Auscultation: normal bowel sounds Other: Incision - CDI Extrem: General: normal to inspection, no pedal edema and no calf tenderness
--- NOTE | 2024-10-08 13:05 | PM.OBDSVD ---
DS: Admitting Diagnosis Discharge Date 10/08/2024 Admitting Diagnosis Term DS: Discharge Diagnosis Discharge Diagnosis (1) Term delivered: Code(s): O80 - Encounter for full-term uncomplicated delivery Status: Acute OB - DS: Summary OB Procedures : None OB Procedures Intrapartum: Spontaneous Vag Delivery OB Procedures: : None Peripartum Data Laceration Description: Superficial Episiotomy description: None Time Spent with Patient Time attestation: Total time spent providing and/or coordinating discharge services: DS: Data Data Completed and Pending Labs on day of discharge: Labs from last 24 hours 10/08/24 04:23 Hgb 8.1 L Hct 26.4 L Discharge Plan Discharge Discharging Clinician: Óscar Lincoln Patient Disposition: Home Activity: pelvic rest Diet: regular Patient Instructions: Antibiotic Form Patient Language: Bengali Stand Alone Forms: General Discharge Information Follow-up/Referrals: Óscar Lincoln MD [Physician] - Discharge Medications: Continued prenat.vits,nafisa,gte-jovi-mxljh Tablet 1 tablet PO DAILY sertraline 50 mg Tablet 100 mg PO DAILY ibuprofen 600 mg Tablet 600 mg PO Q6H PRN (Reason: Cramping) Qty: 30 0RF Date of admission: 10/07/24 04:56 Primary Care Provider: PHYSICIAN,COMMUNITY DEVELOPMENT DIRECTOR Admitting Provider: Óscar Lincoln Attending physician on admission: Jyothi Gar Condition: Stable
[2024-10-09 10:38] VITALS: BP 116/70; PULSE 84; RESP 18; TEMP 36.9; O2SAT 100
== END 2024-10-08 13:58 | disposition home or self-care (01) | DRG 560 ==
LOC: ANHOB2 10-08 13:29 → ANHLDR 10-09 08:29 → ANHOB2 10-09 08:29
PROVIDERS: Advanced Practice Midwife; Admitting Provider Obstetrics & Gynecology; Visit Provider Obstetrics & Gynecology
DX: O69.1XX0 Labor and delivery complicated by cord around neck, with compression, not applicable or unspecified (principal); Z37.0 Single live birth; Z3A.39 39 weeks gestation of pregnancy; O70.0 First degree perineal laceration during delivery; O62.3 Precipitate labor
CPT/HCPCS: 36415; 85014; 85018; 85025; 86593; 86850; 86900; 86901; A9270; J2003; J2590; J2795; J7120

== ENCOUNTER 2024-11-24 01:36 | Day surgery (SDC) | payer OTHER, SELFPAY ==
--- NOTE | 2024-11-11 13:42 | SUR.PREOP ---
Report to the Outpatient Waiting Room, entrance under the green pavilion located off [facility], at time ___06____ on date ___11/24/24____. Planned Procedure Time: ____729____.? Time changes happen often and if your time is changed the preop area will call you the afternoon before. - You and your visitor will be asked to self-screen and do not enter if you have any COVID symptoms. Please call surgeon if you need to reschedule. - A mask is optional within the hospital at this time. Patients may have clear liquids (water, carbonated beverages, clear teas, apple juice) until 3 hours prior to surgery with a maximum of 20 ounces. - NO CLEAR LIQUIDS AFTER 0430 - No food from midnight until time of surgery and no smoking, or chewing tobacco (or any form of nicotine). No chewing gum, candy or mints. - Infants may have breast milk until 4 hours before surgery, infant formula 6 hours prior to surgery. - Children will be allowed to drink immediately following surgery.? If applicable, please bring a bottle or sippy cup to assist with drinking. Juice, water, soda, and popsicles are readily available.? For infants on formula, please bring formula the day of surgery.? Pacifiers are allowed. Take only the following medications with a SIP of water on the morning of surgery: N/A DO NOT STOP ANY OF YOUR OTHER PRESCRIPTION MEDICATIONS PRIOR TO SURGERY EXCEPT THE FOLLOWING Hold all vitamins and supplements for 3 days per anesthesiologist. Medications to discontinue per physician N/A Date to take last dose Please no make-up, nail wallisian, hairspray, perfume, deodorant, or body powder the day of surgery.? No jewelry (including any body piercings) or valuables the day of surgery, leave them at home.? Please take a shower or bath the night before, or the morning of, surgery with an antibacterial soap.? Wear comfortable, loose fitting clothing.? Children are encouraged to wear pajamas. - Jewelry must be removed prior to entering the operating room.? Rings and piercings that are not removed may be cut off. - The hospital will not accept responsibility for valuables.? - Please leave all valuables, including medications, at home the day of surgery. If you are going home after surgery, a licensed cat driver must drive you home.? - NO public transportation without another adult if you receive anesthesia. - We recommend that an adult stay with you for 24 hours following discharge. - We also recommend that you do not drive, make important decision, drink alcoholic beverages, or take any drugs that were not prescribed by your health care provider for at least 24 hours after your discharge time. For Pediatric surgeries, we recommend two adults accompany the child home. Follow any additional instructions given to you from your surgeon. Telephone instructions given to NIHKIL ELIZABETH and asked if any additional questions and then verbalized understanding. Patient advised to call surgeon office or pre surgery nurse liaison [phone] if any additional questions.
[2024-11-11 13:51] VITALS: BMI 37.3
[2024-11-24] VITALS (7 sets, daily range): BP systolic 110–131; BP diastolic 63–89; PULSE 52–80; RESP 12–20; TEMP 36.1–36.3; O2SAT 97–100
--- OUTSIDE RECORDS SUMMARY | 2024-11-24 01:40 | XMS_ITS | Clinical Summary ---
Author Organization [facility] Address [address] [place] [id number] Care Team Providers Care Plate Worker Helper Name Role Phone None, Provider MD Primary [...] - PCV) 10/31/2015 COVID-19 Vaccine (1 - season) 2024 Cervical Cancer Screening Pap Smear (Age 21 [...] age to complete this topic Insurance [address] [place] [address] [place] Care Teams Plate Worker Helper Relationship Specialty Start Date End Date None, Provider, PCP - General 07/03/21 None, ProviderMD 07/03/21
--- OUTSIDE RECORDS SUMMARY | 2024-11-24 01:40 | XMS_ITS | Encounter Summary ---
Author Organization [facility] Address [facility] [place] [address] Care Team Providers Care Police Chief Deputy Name Role Phone None, Provider Primary Care Provider Unavaila ble None, Provider Primary Care Provider Unavaila ble None, Provider MD Unavailable Unavailable Encounter Details Date Type Department Care Team (Latest Contact Info) Description 12/31/2017 Abstract [facility] , Generic Conversion, Social History [...] on filedocumented in this encounter Care Teams Police Chief Deputy Relationship Specialty Start Date End Date None, ProviderMD PCP - General 04/08/21 07/02/21 None, ProviderMD PCP - General 07/03/21 None, ProviderMD 07/03/21 documented as of this encounter
[2024-11-24] MEDS: KETOROLAC 15 MG/ML VIAL (*BKC) IV PUSH (09:25)
[2024-11-24] MEDS: LACTATED RINGERS 1,000 ML 30 ML IV CONT (09:25)
[2024-11-24] MEDS: ACETAMINOPHEN 500 MG TABLET 1000 MG PO (09:25)
[2024-11-24 09:40] LABS: BEDSIDEPREGUCG Negative (Negative)
--- NOTE | 2024-11-24 09:49 | PM.IMHP ---
H&P: HPI History of Present Illness Date/Time: 11/24/24 09:49 Chief Complaint: Unwanted fertility Narrative: This patient is a 29-year-old female who desires female sterilization. Agreed to perform laparoscopic bilateral salpingectomy. She understands risks, benefits, and alternatives. She has completed informed consent process is ready to proceed. The patient understands the details of the procedure. The procedure has been explained in detail. She understands the risks. She understands that injuries may occur that result in hospitalization, more surgery, and severe illness. She understands risk of hemorrhage and infection. She denies any chest pain or shortness of breath. She denies any nausea, vomiting, fever, chills. Review of Systems Review of Systems: All systems reviewed & are unremarkable except as noted in HPI and below Constitutional: Constitutional: Denies chills, Denies fatigue, Denies fever(s) and Denies weakness Eyes: Eyes: Denies blurry vision, Denies change in vision, Denies loss of peripheral vision, Denies loss of vision, Denies other visual disturbances and Denies eye pain ENT: Denies vertigo, Denies dizziness, Denies hearing loss, Denies mouth pain, Denies nasal obstruction, Denies neck mass and Denies neck pain Cardiovascular: Cardiovascular: Denies chest pain, Denies diaphoresis, Denies syncope, Denies leg edema and Denies dyspnea Respiratory: Respiratory: Denies chest congestion, Denies cough, Denies hemoptysis, Denies dyspnea and Denies wheezing Gastrointestinal: Gastrointestinal: Denies abdominal pain, Denies constipation, Denies diarrhea, Denies nausea and Denies vomiting Genitourinary: Genitourinary: Denies hematuria, Denies change in libido, Denies nocturia, Denies genital lesions, Denies flank pain and Denies urinary urgency Musculoskeletal: Musculoskeletal: Denies abnormal gait, Denies back pain, Denies myalgias, Denies arthralgias, Denies joint swelling, Denies muscle weakness and Denies neck pain Integumentary/Breasts: Skin/Breast: Denies swelling, Denies breast pain, Denies breast mass, Denies dry skin, Denies nipple discharge, Denies unusual bruising and Denies jaundice Neurologic: Denies Neuro-related abnormal movements, Denies Abnormal speech present, Denies abnormal gait, Denies behavioral changes, Denies confusion, Denies vertigo, Denies dizziness, Denies syncope, Denies loss of vision, Denies memory loss, Denies convulsions and Denies weakness Psychiatric: Psychiatric: Denies abnormal sleep pattern, Denies behavioral changes, Denies change in libido, Denies confusion, Denies depression, Denies anhedonia and Denies memory loss Endocrine: Endocrine: Reports no additional endocrine complaints, Denies change in libido and Denies fatigue Hematologic/Lymphatic: Hematologic/Lymphatic: Reports no additional hematologic/lymphatic complaints Allergic/Immunologic: Allergic/Immunologic: Reports no additional allergic/immunologic complaints and Denies wheezing PMFSH Past Medical History Medical History Obesity Scoliosis Anxiety and depression Asthma Migraine Family History Family History Sibling Autism Epilepsy Mother Epilepsy Sibling Epilepsy Social History Social History (System 10/20/24 @ 08:42 by Bonnie Rubio) Smoking packs per day: 0.5 Smoking cigarettes per day: 10.0 Years smoked: 15 Smoking pack-years: 7.50 Smoking status: Current every day smoker Tobacco type: e-cigarettes/vaping Alcohol intake: never Substance use: never Do You Feel Safe in your Home?: Yes Lack of Transportation: No Lack of Food: Never True Current Housing: I Have Housing Concerned About Future Housing: No Difficulty Paying Gas/Electric Bills: No Difficulty Paying for Meds: No Currently Unemployed: No Education: High School Diploma/GED Difficulty w/ Childcare or Family Care: No Living arrangements: with family Gender identity (if verbalized by the patient): Female Spiritual care concerns: No Meds Home Medications and Allergies Home Medications ?Medication ?Instructions ?Recorded ?Confirmed ?Type sertraline 50 mg tablet 100 mg PO HS 05/16/23 11/11/24 History Allergies Allergy/AdvReac Type Severity Reaction Status Date / Time latex Allergy Rash Verified 11/24/24 09:39 Vital Signs Vital Signs - 24 hr 11/24/24 09:25 Temperature 97.4 F L Pulse Rate 64 Respiratory Rate 16 Blood Pressure 110/71 Pulse Oximetry 97 Oxygen Delivery Room Air Exam Const: General: cooperative, healthy appearing, comfortable and no acute distress Orientation/consciousness: oriented to person, oriented to place and oriented to time HENMT: Head: normal to inspection Ears: external ears normal Face/Nose/Sinus: Normal external nose present and normal facial exam Face and sinus: normal facial exam Eyes: General: appearance normal, both eyes and all related structures Neck: Neck: normal visual inspection, trachea midline and supple Resp: Auscultation: clear to auscultation bilaterally, no crackles, no rales, no rhonchi and no wheezes Cardio: Rate: regular rate Rhythm: regular rhythm Heart sounds: no click, no murmurs and no rubs GI: GI Palp: No abdominal tenderness, No Soft to palpation, No Tenderness to palpation present (GI) and No Palpable mass present Auscultation: normal bowel sounds Skin: General skin exam: normal color and no rashes or lesions noted Neuro: General: oriented to person, oriented to place and oriented to time Extrem: General: normal to inspection, no joint enlargement, no clubbing, cyanosis or edema, no pedal edema and no calf tenderness Psych: Appearance: grossly normal Mental Status: mental status grossly normal Speech and movement: Normal speech and movement present Assessment and Plan Assessment and plan (1) Unwanted fertility: Code(s): Z30.09 - Encounter for other general counseling and advice on contraception Status: Acute Assessment and Plan: This patient is a 29-year-old female who desires female sterilization. Agreed to perform laparoscopic bilateral salpingectomy. She understands risks, benefits, and alternatives. She has completed informed consent process is ready to proceed.
--- NOTE | 2024-11-24 09:50 | WPDHPUPDATE1 ---
History and Physical Update Update Date/Time: 11/24/24 09:51 History and Physical has been reviewed, including an updated exam of the patient. There are NO changes in the patient's condition. Risks, benefits, and alternatives have been discussed and questions answered. Patient agrees to proceed with procedure.
--- NOTE | 2024-11-24 10:13 | WPDANESEPPF ---
Anes - Initial Pre Proc Eval Procedure: Operation Date: 11/24/24 10:30 Proposed Procedures p Laparoscopic Bilateral Salpingectomy - Óscar Lincoln MD Date/Time: 11/24/24 10:13 Surgeon: Óscar Lincoln MD Pre Op Diagnosis: Vol Sterilization Patient Data Age: 29 Gender: F Height: 1.61 m Weight: 99.45 kg Last Vital Signs Temp 97.4 F L 11/24/24 09:25 Pulse 64 11/24/24 09:25 Resp 16 11/24/24 09:25 BP 110/71 11/24/24 09:25 Pulse Ox 97 11/24/24 09:25 O2 Del Method Room Air 11/24/24 09:25 Allergies Allergy/AdvReac Type Severity Reaction Status Date / Time latex Allergy Rash Verified 11/24/24 09:39 Home Medications ?Medication ?Instructions ?Recorded ?Confirmed ?Type sertraline 50 mg tablet 100 mg PO HS 05/16/23 11/11/24 History Laboratory Tests 11/24/24 09:25 POC Urine HCG, Qual Negative (Negative) Patient hx anesthesia problems: none Family hx anesthesia problems: none Results Review: All pre-operative results and documents have been reviewed as part of the pre-operative evaluation. PENDING SALE TO [facility] Past Medical History Medical History Obesity Scoliosis Anxiety and depression Asthma Migraine Family History Family History Sibling Autism Epilepsy Mother Epilepsy Sibling Epilepsy Social History Social History (System 10/20/24 @ 08:42 by Bonnie Rubio) Smoking packs per day: 0.5 Smoking cigarettes per day: 10.0 Years smoked: 15 Smoking pack-years: 7.50 Smoking status: Current every day smoker Tobacco type: e-cigarettes/vaping Alcohol intake: never Substance use: never Do You Feel Safe in your Home?: Yes Lack of Transportation: No Lack of Food: Never True Current Housing: I Have Housing Concerned About Future Housing: No Difficulty Paying Gas/Electric Bills: No Difficulty Paying for Meds: No Currently Unemployed: No Education: High School Diploma/GED Difficulty w/ Childcare or Family Care: No Living arrangements: with family Gender identity (if verbalized by the patient): Female Spiritual care concerns: No Anes - Eval Final PreProcedure Day of Procedure 11/24/24 10:13 Patient weight: obese Heart: regular rate and rhythm Lungs: clear to auscultation Airway: Mallampati scale class III Neurological: alert and oriented Last oral intake: >/= 8 hours ASA classification: III Emergent: no Anesthetic plan: proceed Anesthesia type and monitoring: general ETT and standard monitoring Results Review: All pre-operative results and documents have been reviewed as part of the pre-operative evaluation. Informed Consent: The patient's anesthetic plan and its attendant risks and benefits were discussed with the patient/family/POA. Questions were solicited and answers provided to the satisfaction of the patient/family/POA.
--- NOTE | 2024-11-24 10:57 | S_PTH ---
PATIENT: Maura Clark LOC: [facility] U#:[id number] AGE/SX: 29/F ROOM: RE11/24/[address]: Óscar Lincoln MD : 1995 BED: DIS: 11/24/2024 SPEC #: [id number] RECD: 11/24/24 12:35 STATUS: XENIA REDennis #: [id number] VIOLETTE: 11/24/24 10:[address]: Óscar Lincoln DEPT: [facility] Surgical RECD BY: Melinda Sorensen ENTERED: 11/24/24 12:35 SP TYPE: Surgical OTHR DR: CASEWORK MANAGER PHYSICIAN Tissues: A - Fallopian Tube Bilateral Procedures: Gross and Microscopic Level 2 Hematoxylin and Eosin Stain
--- NOTE | 2024-11-24 11:10 | W.PM.PROC2 ---
Procedure Note - Detailed Date of Procedure 11/24/24 Pre-op Diagnosis Vol Sterilization Post-op Diagnosis Same Procedure Performed Laparoscopic bilateral salpingectomy Surgeon Óscar Lincoln MD Anesthesia General Indications Unwanted fertility Findings Normal pelvic anatomy with a right-sided fluid-filled fallopian 2 Description of Procedure The patient was taken the operating room. She was prepped and draped in the dorsal lithotomy position after induction of general anesthesia. A 5 mm skin incision was made in the left upper quadrant of the abdominal skin. A 5 mm trocar was inserted the intra-abdominal cavity under direct visualization of the scope. Pneumoperitoneum was achieved. A 5 mm trocar was inserted in the left lower quadrant identical fashion. A 5 mm infraumbilical trocar was inserted in identical fashion as well. The bilateral fallopian tubes were removed. This was done by using a LigaSure cautery. The mesosalpinx adjacent to the tube was cauterized transected with LigaSure. This was initiated in the area the ovary and in a stepwise fashion moved medially to the area of the cornu of the uterus. Once there the fallopian tube was cauterized and transected. This was done in identical fashion on each side. The fallopian tubes were taken out through the left lower quadrant trocar site. The pneumoperitoneum was reduced. The trocars removed. The skin was closed with subcuticular 4 Monocryl and covered with Dermabond. She was taken to cover stable condition. Sponge lap and needle counts were correct x2. Estimated Blood Loss 5 Drains No Packing No Pathology Yes Complications No immediate complications Condition Stable Disposition PACU
[2024-11-24] MEDS: fentaNYL CITRATE INJ (*CRX) 100 MCG/2 ML VIAL 25 MCG IV PUSH ×6 (11:17→11:34)
[2024-11-24] MEDS: oxyCODONE HCL (*CRX) 5 MG TAB IR PO (12:26)
== END 2024-11-24 13:01 | disposition home or self-care (01) ==
PROVIDERS: Visit Provider Obstetrics & Gynecology
PROC: (CPT 49320; principal; 2024-11-24 10:30)
DX: Z30.2 Encounter for sterilization (principal); G89.18 Other acute postprocedural pain; J45.909 Unspecified asthma, uncomplicated; F41.8 Other specified anxiety disorders; M41.9 Scoliosis, unspecified; F17.290 Nicotine dependence, other tobacco product, uncomplicated; E66.9 Obesity, unspecified; Z68.38 Body mass index [BMI] 38.0-38.9, adult
CPT/HCPCS: 58661; 88302; J0690; A9270; J1100; J1885; J2003; J2250; J2405; J2704; J3010; J7030; J7120; Q9968